=== PATIENT | female | born 1955 | race Caucasian/White ===

== ENCOUNTER 2018-07-16 12:29 | Observation (INO) ==
[2018-07-16] MEDS ORDERED: ALBUTEROL 2.5 MG/3 ML NEB RESP TX STA (13:17)
[2018-07-16 13:33] LABS: ABG Base Excess 1.5 MMOL/L (-2.5-2.5); ABG HCO3 25.7 MMOL/L (20-26); ABG Oxygen Saturation 96.6 % (95-100); ABG PCO2 42.7 MM HG (35-48); ABG PH 7.403 (7.35-7.45); ABG PO2 85.8 MM HG (80-95); ABG TCO2 22.8 MMOL/L (23-27)
[2018-07-16 13:54] LABS: Basophils % 0.5 % (0.0-0.8); Eosinophils % 0.5 % (0.00-10.9); Hematocrit 43.7 VOL% (35.7-47.0); Hemoglobin 14.2 GM/DL (12.0-16.0); Immature Granulocytes % 0.6 %; Immature Granulocytes Absolute 0.05 #; Lymphocytes # 1.3 10*3/uL (1.4-4.0); Lymphocytes % 15.6 % (21.3-54.2); Mean Corpuscular HGB Conc 32.5 GM/DL (32-36); Mean Corpuscular Hemoglobin 30 PG (27-34); Mean Corpuscular Volume 92.8 FL (87-102); Mean Platelet Volume 9.8 FL (9.6-12.0); Monocytes # 0.8 10*3/uL (0.11-0.8); Monocytes % 9.8 % (1.7-12.7); Neutrophils # 6.2 10*3/uL (1.4-7.4); Platelet Count 258 T/CUMM (130-400); Red Blood Count 4.71 MC/CUMM (3.8-5.5); Red Cell Distribution Width 13.2 % (9.3-17.3); White Blood Count 8.4 T/CUMM (4-12)
[2018-07-16 14:08] LABS: PT Patient Result 10.6 SECS; Partial Thromboplastin Time 26.7 SECS (0-40)
[2018-07-16 14:13] LABS: Albumin 3.4 G/DL (3.4-5.0); Bilirubin,Total 0.5 MG/DL (0.2-1.0); Calcium 8.9 MG/DL (8.5-10.1); Osmolality,Calculated 275.7 MOS/KG (273-304); Potassium 3.8 MMOL/L (3.5-5.1); Total Protein 7.5 G/DL (6.4-8.3)
[2018-07-16] MEDS ORDERED: ONDANSETRON 4 MG/2 ML VIAL IV PRN (16:26)
[2018-07-16] MEDS ORDERED: SODIUM CHLORIDE 0.9% 1,000 ML IV SCH (16:30)
[2018-07-16] MEDS ORDERED: BUDESONIDE/FORMOTEROL 160-4.5 INHALER 6 GM INH PRN (16:31)
[2018-07-16] MEDS ORDERED: NON-FORMULARY MEDICATION (Benazepril Hcl [Benazepril Hcl] 20 MG) PO SCH (17:00)
[2018-07-16] MEDS ORDERED: predniSONE 20 MG TABLET PO STA (17:12)
[2018-07-16] MEDS ORDERED: methylPREDNISolone SOD SUC 40 MG/1 ML VIAL IV STA (17:13)
[2018-07-16] MEDS: PANTOPRAZOLE 40 MG TABLET PO SCH (18:20)
[2018-07-16 20:25] LABS: Apearance,Urine CLEAR (Clear); Bilirubin,Urine Negative (Negative); Blood, Urine Moderate mg/dL (Negative); Glucose,Urine (UA) Negative (Negative); Ketones,Urine 80 mg/dL (Negative); Mucus,Urine Few /LPF (Occasional); Nitrite,Urine Negative (Negative); Protein,Urine Negative; RBC,Urine 6 /HPF (0-4); Squamous Epithelial Cell,Urine Occasional /HPF (0-10); Urine Color Yellow (Yellow); Urine Specific Gravity > 1.060 (1.001-1.035); Urine Urobilinogen < 2.0 EU/DL (0.2-1.0); WBC,Urine 1 /HPF (0-6)
[2018-07-17 05:50] LABS: Basophils % 0.1 % (0.0-0.8); Hematocrit 41.7 VOL% (35.7-47.0); Immature Granulocytes % 0.8 %; Immature Granulocytes Absolute 0.06 #; Lymphocytes # 0.8 10*3/uL (1.4-4.0); Lymphocytes % 10.2 % (21.3-54.2); Mean Corpuscular HGB Conc 33.6 GM/DL (32-36); Mean Corpuscular Hemoglobin 31 PG (27-34); Mean Corpuscular Volume 90.8 FL (87-102); Mean Platelet Volume 10.4 FL (9.6-12.0); Monocytes # 0.3 10*3/uL (0.11-0.8); Monocytes % 3.2 % (1.7-12.7); Neutrophils # 6.8 10*3/uL (1.4-7.4); Neutrophils % 85.7 % (38.7-73.9); Platelet Count 291 T/CUMM (130-400); Red Blood Count 4.59 MC/CUMM (3.8-5.5); Red Cell Distribution Width 13.3 % (9.3-17.3); White Blood Count 7.9 T/CUMM (4-12)
[2018-07-17 06:22] LABS: Albumin 3.2 G/DL (3.4-5.0); Bilirubin,Total 0.5 MG/DL (0.2-1.0); Calcium 9.1 MG/DL (8.5-10.1); Osmolality,Calculated 272.8 MOS/KG (273-304); Potassium 4.2 MMOL/L (3.5-5.1); Risk Ratio 3.89; Thyroid Stimulating Hormone 1.09 uIU/ml (0.358-3.74); Total Protein 7.6 G/DL (6.4-8.3); VLDL CHOLESTEROL 15.6 MG/DL
[2018-07-17 07:59] VITALS: BP 179/93
[2018-07-17] MEDS ORDERED: SPIRONOLACTONE 25 MG TABLET PO SCH (09:00)
[2018-07-17] MEDS ORDERED: FERROUS SULFATE 325 MG TABLET PO SCH (09:00)
[2018-07-17] MEDS ORDERED: CELECOXIB 200 MG CAPSULE PO SCH (09:00)
[2018-07-17] MEDS ORDERED: amLODIPine 5 MG TABLET PO SCH (09:00)
[2018-07-17] MEDS: PANTOPRAZOLE 40 MG TABLET PO SCH (09:15)
== END 2018-07-17 11:05 | disposition home or self-care (01) ==
LOC: EDUNIT# → EDBD → N.EDINP 12:29 → N.ED 12:29 → N.5E 19:35
PROVIDERS: ADMIT Internal Medicine; ATTEND Internal Medicine

== ENCOUNTER 2018-11-03 11:34 | Inpatient (IN) ==
[2018-11-03] MEDS ORDERED: ONDANSETRON 4 MG/2 ML VIAL IV STA (12:24)
[2018-11-03] MEDS ORDERED: SODIUM CHLORIDE 0.9% 500 ML IV STA (12:24)
[2018-11-03] MEDS ORDERED: FAMOTIDINE 20 MG/2 ML VIAL IV STA (12:28)
[2018-11-03 13:11] LABS: Basophils % 0.3 % (0.0-0.8); Eosinophils # 0.1 10*3/uL (0.0-0.87); Eosinophils % 0.6 % (0.00-10.9); Hematocrit 46.5 VOL% (35.7-47.0); Hemoglobin 15.1 GM/DL (12.0-16.0); Immature Granulocytes % 0.6 %; Immature Granulocytes Absolute 0.07 #; Lymphocytes # 1.9 10*3/uL (1.4-4.0); Lymphocytes % 17.7 % (21.3-54.2); Mean Corpuscular HGB Conc 32.5 GM/DL (32-36); Mean Corpuscular Volume 93.4 FL (87-102); Mean Platelet Volume 10.7 FL (9.6-12.0); Monocytes % 5.9 % (1.7-12.7); Neutrophils % 74.9 % (38.7-73.9); Platelet Count 126 T/CUMM (130-400); Red Blood Count 4.98 MC/CUMM (3.8-5.5); Red Cell Distribution Width 13.1 % (9.3-17.3); White Blood Count 10.8 T/CUMM (4-12)
[2018-11-03 13:35] LABS: Albumin 3.8 G/DL (3.4-5.0); Bilirubin,Total 0.6 MG/DL (0.2-1.0); Calcium 9.4 MG/DL (8.5-10.1); Osmolality,Calculated 276.4 MOS/KG (273-304); Total Protein 7.6 G/DL (6.4-8.3)
[2018-11-03 14:08] LABS: Lymphocytes 18 % (20-55); Segmented Neutrophils 76 % (50-85)
[2018-11-03 14:09] LABS: Hypochromasia Slight; Macrocytosis Slight; Platelet Estimate Adequate
[2018-11-03 14:10] LABS: Total Cells Counted 100
[2018-11-03 14:30] LABS: Apearance,Urine CLEAR (Clear); Bilirubin,Urine Negative (Negative); Blood, Urine Negative (Negative); Glucose,Urine (UA) Negative (Negative); Hyaline Casts,Urine 5 /LPF (0-3); Ketones,Urine 80 mg/dL (Negative); Mucus,Urine Many /LPF (Occasional); Nitrite,Urine Negative (Negative); Protein,Urine 100 MG/DL; Squamous Epithelial Cell,Urine Occasional /HPF (0-10); Urine Color Yellow (Yellow); Urine Specific Gravity 1.021 (1.001-1.035); Urine Urobilinogen < 2.0 EU/DL (0.2-1.0)
[2018-11-03] MEDS ORDERED: ONDANSETRON 4 MG/2 ML VIAL IV PRN (14:56)
[2018-11-03] MEDS ORDERED: BUDESONIDE/FORMOTEROL 160-4.5 INHALER 6 GM INH PRN (14:59)
[2018-11-03] MEDS: DEXTROSE 5% NACL 0.45% 1,000 ML IV SCH (21:13)
[2018-11-04 05:04] LABS: Basophils % 0.3 % (0.0-0.8); Eosinophils # 0.1 10*3/uL (0.0-0.87); Hematocrit 41.8 VOL% (35.7-47.0); Hemoglobin 13.6 GM/DL (12.0-16.0); Immature Granulocytes % 0.4 %; Immature Granulocytes Absolute 0.04 #; Lymphocytes % 19.3 % (21.3-54.2); Mean Corpuscular HGB Conc 32.5 GM/DL (32-36); Mean Corpuscular Volume 93.5 FL (87-102); Mean Platelet Volume 10.2 FL (9.6-12.0); Monocytes % 8.2 % (1.7-12.7); Neutrophils % 70.8 % (38.7-73.9); Platelet Count 270 T/CUMM (130-400); Red Blood Count 4.47 MC/CUMM (3.8-5.5); Red Cell Distribution Width 12.8 % (9.3-17.3); White Blood Count 10.6 T/CUMM (4-12)
[2018-11-04 05:27] LABS: Calcium 9.2 MG/DL (8.5-10.1); Osmolality,Calculated 280.1 MOS/KG (273-304); Risk Ratio 4.51; Thyroid Stimulating Hormone 2.25 uIU/ml (0.358-3.74); VLDL CHOLESTEROL 19.6 MG/DL
[2018-11-04] MEDS: DEXTROSE 5% NACL 0.45% 1,000 ML IV SCH ×2 (07:07→17:11)
[2018-11-04] MEDS ORDERED: LABETALOL 20 MG/4 ML SYRINGE IV ONE (07:39)
[2018-11-04] MEDS: FERROUS SULFATE 325 MG TABLET PO SCH (11:05)
[2018-11-04] MEDS: CELECOXIB 200 MG CAPSULE PO SCH (11:05)
[2018-11-04] MEDS: PANTOPRAZOLE 40 MG TABLET PO SCH (11:06)
[2018-11-04] MEDS: amLODIPine 5 MG TABLET PO SCH (11:06)
[2018-11-04] MEDS ORDERED: ENOXAPARIN 40 MG/0.4 ML SYRINGE SUBCUT SCH (22:00)
[2018-11-05] MEDS: DEXTROSE 5% NACL 0.45% 1,000 ML IV SCH ×2 (03:00→23:52)
[2018-11-05 05:52] LABS: Basophils % 0.3 % (0.0-0.8); Eosinophils # 0.1 10*3/uL (0.0-0.87); Eosinophils % 1.5 % (0.00-10.9); Immature Granulocytes % 0.3 %; Immature Granulocytes Absolute 0.03 #; Lymphocytes # 2.2 10*3/uL (1.4-4.0); Lymphocytes % 23.3 % (21.3-54.2); Mean Corpuscular HGB Conc 33.3 GM/DL (32-36); Mean Corpuscular Volume 93.3 FL (87-102); Mean Platelet Volume 10.6 FL (9.6-12.0); Monocytes % 8.7 % (1.7-12.7); Neutrophils % 65.9 % (38.7-73.9); Platelet Count 267 T/CUMM (130-400); Red Cell Distribution Width 12.8 % (9.3-17.3); White Blood Count 9.3 T/CUMM (4-12)
[2018-11-05 06:15] LABS: Calcium 9.1 MG/DL (8.5-10.1)
[2018-11-05] MEDS: POTASSIUM CHLORIDE RIDER 10 MEQ in PREMIX 1 EACH IV PRN ×5 (06:42→20:25)
[2018-11-05] MEDS ORDERED: hydrALAZINE 20 MG/1 ML VIAL IV PRN (07:23)
[2018-11-05] MEDS: amLODIPine 5 MG TABLET PO SCH (08:11)
[2018-11-05] MEDS: PANTOPRAZOLE 40 MG TABLET PO SCH (08:11)
[2018-11-05] MEDS: CELECOXIB 200 MG CAPSULE PO SCH (08:11)
[2018-11-05] MEDS: FERROUS SULFATE 325 MG TABLET PO SCH (08:11)
[2018-11-05] MEDS ORDERED: FUROSEMIDE 40 MG/4 ML VIAL IV ONE ×2 (09:56→17:00)
[2018-11-05] MEDS ORDERED: LABETALOL 20 MG/4 ML SYRINGE IV ONE (09:56)
[2018-11-05] MEDS: LABETALOL 20 MG/4 ML SYRINGE IV PRN ×2 (16:40→23:36)
[2018-11-05] MEDS ORDERED: LORazepam 2 MG/1 ML VIAL IV ONE (17:00)
[2018-11-05] MEDS: POTASSIUM CHLORIDE RIDER 10 MEQ in PREMIX 1 EACH IV SCH ×2 (19:18→19:19)
[2018-11-05] MEDS ORDERED: IMMUNE GLOBULIN 10% 20 GM, IMMUNE GLOBULIN 10% 10 GM, IMMUNE GLOBULIN 10% 5 GM in PREMI... IV SCH (21:00)
[2018-11-05 21:06] LABS: Folate 8.6 NG/ML (5.4-24.0); Vitamin B12 1653 PG/ML (211-911)
[2018-11-05] MEDS: methylPREDNISolone SOD SUC 40 MG/1 ML VIAL IV SCH (21:23)
[2018-11-05] MEDS ORDERED: IMMUNE GLOBULIN IV SCH (22:30)
[2018-11-05] MEDS ORDERED: [UNRECOGNIZED DRUG - OTHER] IV SCH (22:30)
[2018-11-06 04:51] LABS: Basophils % 0.1 % (0.0-0.8); Hematocrit 45.4 VOL% (35.7-47.0); Hemoglobin 15.1 GM/DL (12.0-16.0); Immature Granulocytes % 0.7 %; Immature Granulocytes Absolute 0.06 #; Lymphocytes # 0.6 10*3/uL (1.4-4.0); Lymphocytes % 6.8 % (21.3-54.2); Mean Corpuscular HGB Conc 33.3 GM/DL (32-36); Mean Corpuscular Volume 92.1 FL (87-102); Mean Platelet Volume 10.2 FL (9.6-12.0); Monocytes % 0.7 % (1.7-12.7); Neutrophils % 91.7 % (38.7-73.9); Platelet Count 349 T/CUMM (130-400); Red Blood Count 4.93 MC/CUMM (3.8-5.5); Red Cell Distribution Width 12.9 % (9.3-17.3); White Blood Count 8.8 T/CUMM (4-12)
[2018-11-06 04:56] LABS: PT Patient Result 10.7 SECS
[2018-11-06] MEDS: methylPREDNISolone SOD SUC 40 MG/1 ML VIAL IV SCH ×3 (05:01→22:07)
[2018-11-06] MEDS: LABETALOL 20 MG/4 ML SYRINGE IV PRN (05:05)
[2018-11-06 05:27] LABS: Calcium 9.8 MG/DL (8.5-10.1); Osmolality,Calculated 276.5 MOS/KG (273-304)
[2018-11-06] MEDS ORDERED: ceFAZolin 1,000 MG in SYRINGE 1 EACH IV ONE (06:30)
[2018-11-06] MEDS ORDERED: MAGNESIUM SULF RIDER 2 GM in PREMIX 1 EACH IV ONE (08:48)
[2018-11-06] MEDS ORDERED: PROPOFOL 200 MG/20 ML VIAL IV ONE (09:00)
[2018-11-06] MEDS ORDERED: LIDOCAINE 100 MG/5 ML SYRINGE ONE (09:00)
[2018-11-06 09:15] LABS: Hypochromasia 1+; Lymphocytes 8 % (20-55); Microcytosis Slight; Segmented Neutrophils 92 % (50-85); Total Cells Counted 100
[2018-11-06 09:16] LABS: Platelet Estimate Normal
[2018-11-06] MEDS ORDERED: LEVALBUTEROL 1.25 MG/3 ML NEB RESP TX STA ×2 (10:25→11:42)
[2018-11-06] MEDS: LACTATED RINGERS 1,000 ML IV SCH (10:54)
[2018-11-06] MEDS ORDERED: MIDAZOLAM 2 MG/2 ML VIAL ONE (11:11)
[2018-11-06] MEDS: CELECOXIB 200 MG CAPSULE PO SCH (12:46)
[2018-11-06] MEDS: DEXTROSE 5% NACL 0.45% 1,000 ML IV SCH (13:04)
[2018-11-06] MEDS ORDERED: DEXTROSE 50% 25 GM/50 ML VIAL IV PRN (14:02)
[2018-11-06] MEDS ORDERED: GLUCAGON 1 MG VIAL IM PRN (14:02)
[2018-11-06] MEDS ORDERED: LORazepam 2 MG/1 ML VIAL IV ONE (14:30)
[2018-11-06] MEDS: FERROUS SULFATE 325 MG TABLET PO SCH (15:46)
[2018-11-06] MEDS: PANTOPRAZOLE 40 MG TABLET PO SCH (15:46)
[2018-11-06] MEDS: amLODIPine 5 MG TABLET PO SCH (15:46)
[2018-11-06] MEDS: IMMUNE GLOBULIN IV SCH (21:40)
[2018-11-06] MEDS: PYRIDOSTIGMINE 60 MG TABLET PO SCH (21:40)
[2018-11-07 06:15] LABS: Calcium 9.1 MG/DL (8.5-10.1); Osmolality,Calculated 282.3 MOS/KG (273-304)
[2018-11-07 06:19] LABS: Prealbumin 12.1 MG/DL (20-40)
[2018-11-07] MEDS: amLODIPine 5 MG TABLET PO SCH (09:12)
[2018-11-07] MEDS: FERROUS SULFATE 325 MG TABLET PO SCH (09:12)
[2018-11-07] MEDS: PANTOPRAZOLE 40 MG TABLET PO SCH (09:13)
[2018-11-07] MEDS: PYRIDOSTIGMINE 60 MG TABLET PO SCH ×3 (09:13→21:24)
[2018-11-07] MEDS: INSULIN REGULAR 100 UNIT/ML SUBCUT SCH ×3 (09:14→18:57)
[2018-11-07] MEDS: methylPREDNISolone SOD SUC 40 MG/1 ML VIAL IV SCH ×3 (09:15→23:00)
[2018-11-07] MEDS ORDERED: LORazepam 2 MG/1 ML VIAL ONE (09:43)
[2018-11-07] MEDS ORDERED: LORazepam 2 MG/1 ML VIAL IV ONE (09:45)
[2018-11-07] MEDS: IMMUNE GLOBULIN IV SCH (21:49)
[2018-11-07] MEDS: hydrALAZINE 20 MG/1 ML VIAL IV PRN (22:14)
[2018-11-08] MEDS: LABETALOL 20 MG/4 ML SYRINGE IV PRN (00:13)
[2018-11-08] MEDS: LACTATED RINGERS 1,000 ML IV SCH (01:39)
[2018-11-08] MEDS: DEXTROSE 5% NACL 0.45% 1,000 ML IV SCH ×2 (01:39→23:23)
[2018-11-08] MEDS: INSULIN REGULAR 100 UNIT/ML SUBCUT SCH ×5 (01:39→23:56)
[2018-11-08] MEDS: methylPREDNISolone SOD SUC 40 MG/1 ML VIAL IV SCH ×3 (06:07→23:58)
[2018-11-08] MEDS: FUROSEMIDE 40 MG TABLET PO PRN (06:09)
[2018-11-08] MEDS: FERROUS SULFATE 325 MG TABLET PO SCH (09:44)
[2018-11-08] MEDS: PYRIDOSTIGMINE 60 MG TABLET PO SCH ×3 (09:44→21:47)
[2018-11-08] MEDS: amLODIPine 5 MG TABLET PO SCH (09:44)
[2018-11-08] MEDS: PANTOPRAZOLE 40 MG TABLET PO SCH (09:44)
[2018-11-08] MEDS: hydrALAZINE 20 MG/1 ML VIAL IV PRN (21:40)
[2018-11-08] MEDS: IMMUNE GLOBULIN IV SCH (21:42)
[2018-11-08] MEDS: POTASSIUM CHLORIDE 20 MEQ TABLET PO PRN (21:46)
[2018-11-09] MEDS: POTASSIUM CHLORIDE 20 MEQ TABLET PO PRN (00:03)
[2018-11-09] MEDS: methylPREDNISolone SOD SUC 40 MG/1 ML VIAL IV SCH ×2 (06:03→14:01)
[2018-11-09] MEDS: INSULIN REGULAR 100 UNIT/ML SUBCUT SCH ×3 (06:08→18:07)
[2018-11-09] MEDS: LACTATED RINGERS 1,000 ML IV SCH (07:44)
[2018-11-09] MEDS: PANTOPRAZOLE 40 MG TABLET PO SCH (08:51)
[2018-11-09] MEDS: FERROUS SULFATE 325 MG TABLET PO SCH (08:51)
[2018-11-09] MEDS: PYRIDOSTIGMINE 60 MG TABLET PO SCH ×3 (08:51→20:22)
[2018-11-09] MEDS: amLODIPine 5 MG TABLET PO SCH ×3 (08:51→20:22)
[2018-11-09] MEDS: hydrALAZINE 20 MG/1 ML VIAL IV PRN (12:39)
[2018-11-09] MEDS: FUROSEMIDE 40 MG TABLET PO PRN (16:39)
[2018-11-09] MEDS: IMMUNE GLOBULIN IV SCH (22:35)
[2018-11-10] MEDS: methylPREDNISolone SOD SUC 40 MG/1 ML VIAL IV SCH ×2 (00:01→06:42)
[2018-11-10] MEDS: DEXTROSE 5% NACL 0.45% 1,000 ML IV SCH (00:01)
[2018-11-10] MEDS: INSULIN REGULAR 100 UNIT/ML SUBCUT SCH ×4 (00:01→20:08)
[2018-11-10 05:14] LABS: Basophils % 0.3 % (0.0-0.8); Hematocrit 43.7 VOL% (35.7-47.0); Immature Granulocytes % 1.4 %; Immature Granulocytes Absolute 0.17 #; Lymphocytes # 0.6 10*3/uL (1.4-4.0); Lymphocytes % 4.6 % (21.3-54.2); Mean Corpuscular Volume 94.4 FL (87-102); Mean Platelet Volume 10.4 FL (9.6-12.0); Monocytes % 5.8 % (1.7-12.7); Neutrophils % 87.9 % (38.7-73.9); Platelet Count 345 T/CUMM (130-400); Red Blood Count 4.63 MC/CUMM (3.8-5.5); Red Cell Distribution Width 12.7 % (9.3-17.3)
[2018-11-10 05:37] LABS: Albumin 2.6 G/DL (3.4-5.0); Bilirubin,Total 0.7 MG/DL (0.2-1.0); Calcium 8.5 MG/DL (8.5-10.1); Osmolality,Calculated 277.4 MOS/KG (273-304)
[2018-11-10 05:43] LABS: Hypochromasia 1+; Lymphocytes 4 % (20-55); Platelet Estimate Adequate; Segmented Neutrophils 88 % (50-85); Total Cells Counted 100
[2018-11-10 05:44] LABS: Microcytosis Slight
[2018-11-10] MEDS: hydrALAZINE 20 MG/1 ML VIAL IV PRN (05:51)
[2018-11-10] MEDS: PYRIDOSTIGMINE 60 MG TABLET PO SCH ×3 (08:48→20:54)
[2018-11-10] MEDS: PANTOPRAZOLE 40 MG TABLET PO SCH (08:48)
[2018-11-10] MEDS: FERROUS SULFATE 325 MG TABLET PO SCH (08:48)
[2018-11-10] MEDS: FUROSEMIDE 40 MG TABLET PO PRN (08:48)
[2018-11-10] MEDS: amLODIPine 5 MG TABLET PO SCH ×2 (08:49→20:54)
[2018-11-10] MEDS ORDERED: FUROSEMIDE 40 MG/4 ML VIAL IV ONE (13:42)
[2018-11-10] MEDS: methylPREDNISolone SOD SUC 125 MG/2 ML VIAL IV SCH (20:08)
[2018-11-10] MEDS: POTASSIUM CHLORIDE 20 MEQ TABLET PO PRN (20:55)
[2018-11-11] MEDS: INSULIN REGULAR 100 UNIT/ML SUBCUT SCH ×4 (00:42→17:39)
[2018-11-11] MEDS: DEXTROSE 5% NACL 0.45% 1,000 ML IV SCH (00:42)
[2018-11-11] MEDS: methylPREDNISolone SOD SUC 125 MG/2 ML VIAL IV SCH (06:18)
[2018-11-11] MEDS: FERROUS SULFATE 325 MG TABLET PO SCH (09:28)
[2018-11-11] MEDS: amLODIPine 5 MG TABLET PO SCH ×2 (09:28→21:19)
[2018-11-11] MEDS: POTASSIUM CHLORIDE 20 MEQ TABLET PO PRN (09:28)
[2018-11-11] MEDS: PANTOPRAZOLE 40 MG TABLET PO SCH (09:29)
[2018-11-11] MEDS: PYRIDOSTIGMINE 60 MG TABLET PO SCH ×3 (09:29→21:19)
[2018-11-11] MEDS: WHEAT DEXTRIN POWDER 244 GM BOTTLE PEG SCH ×2 (14:52→21:20)
[2018-11-11] MEDS: hydrALAZINE 20 MG/1 ML VIAL IV PRN (18:17)
[2018-11-11] MEDS: predniSONE 10 MG TABLET PO SCH ×2 (18:19→21:21)
[2018-11-12] MEDS: INSULIN REGULAR 100 UNIT/ML SUBCUT SCH ×4 (00:14→18:17)
[2018-11-12] MEDS: DEXTROSE 5% NACL 0.45% 1,000 ML IV SCH (00:15)
[2018-11-12] MEDS: predniSONE 10 MG TABLET PO SCH (09:50)
[2018-11-12] MEDS: FERROUS SULFATE 325 MG TABLET PO SCH (09:58)
[2018-11-12] MEDS: PYRIDOSTIGMINE 60 MG TABLET PO SCH ×3 (09:58→21:26)
[2018-11-12] MEDS: PANTOPRAZOLE 40 MG TABLET PO SCH (09:58)
[2018-11-12] MEDS: WHEAT DEXTRIN POWDER 244 GM BOTTLE PEG SCH ×3 (09:58→22:11)
[2018-11-12] MEDS: amLODIPine 5 MG TABLET PO SCH ×2 (09:58→21:26)
[2018-11-12] MEDS ORDERED: POLYETHYLENE GLYCOL POWDER 17 GM PACK PEG PRN (10:28)
[2018-11-12 11:16] LABS: ACh Receptor (Muscle) Modulati 100 %; Striational (Striated Muscle) Negative titer (<1:120)
[2018-11-12] MEDS: predniSONE 20 MG TABLET PO SCH ×2 (11:53→21:26)
[2018-11-13] MEDS: INSULIN REGULAR 100 UNIT/ML SUBCUT SCH ×3 (00:18→13:00)
[2018-11-13] MEDS: DEXTROSE 5% NACL 0.45% 1,000 ML IV SCH (03:20)
[2018-11-13 05:54] LABS: Calcium 8.6 MG/DL (8.5-10.1); Osmolality,Calculated 281.2 MOS/KG (273-304); Prealbumin 21.9 MG/DL (20-40)
[2018-11-13] MEDS: amLODIPine 5 MG TABLET PO SCH (09:54)
[2018-11-13] MEDS: predniSONE 20 MG TABLET PO SCH (09:54)
[2018-11-13] MEDS: PYRIDOSTIGMINE 60 MG TABLET PO SCH (09:54)
[2018-11-13] MEDS: FERROUS SULFATE 325 MG TABLET PO SCH (09:54)
[2018-11-13] MEDS: WHEAT DEXTRIN POWDER 244 GM BOTTLE PEG SCH (09:55)
[2018-11-13] MEDS: PANTOPRAZOLE 40 MG TABLET PO SCH (09:58)
[2018-11-13 12:18] VITALS: BP 108/58
== END 2018-11-13 12:59 | disposition swing bed (61) | DRG 57 ==
LOC: N.ED 11:34 → SUATTDRO 14:56 → N.EDINP 14:56 → N.4E 15:45
PROVIDERS: ADMIT Internal Medicine Nephrology; ATTEND Internal Medicine Cardiovascular Disease
PROC: EGDWPEG (ICD-10-PCS; 2018-11-06 09:05)

== ENCOUNTER 2019-09-20 18:20 | Inpatient (IN) ==
[2019-09-20] MEDS ORDERED: hydrALAZINE 20 MG/1 ML VIAL IV STA (20:11)
[2019-09-20 20:14] LABS: Basophils # 0.1 10*3/uL (0.0-0.2); Basophils % 0.4 % (0.0-0.8); Eosinophils # 0.1 10*3/uL (0.0-0.87); Eosinophils % 0.4 % (0.00-10.9); Hematocrit 49.9 VOL% (35.7-47.0); Immature Granulocytes % 0.5 %; Immature Granulocytes Absolute 0.07 #; Lymphocytes # 3.8 10*3/uL (1.4-4.0); Lymphocytes % 26.6 % (21.3-54.2); Mean Corpuscular HGB Conc 32.1 GM/DL (32-36); Mean Corpuscular Volume 90.4 FL (87-102); Mean Platelet Volume 9.5 FL (9.6-12.0); Monocytes % 7.6 % (1.7-12.7); Neutrophils % 64.5 % (38.7-73.9); Platelet Count 320 T/CUMM (130-400); Red Blood Count 5.52 MC/CUMM (3.8-5.5); Red Cell Distribution Width 13.4 % (9.3-17.3); White Blood Count 14.2 T/CUMM (4-12)
[2019-09-20 20:41] LABS: Albumin 4.3 G/DL (3.4-5.0); Bilirubin,Total 0.7 MG/DL (0.2-1.0); Calcium 9.2 MG/DL (8.5-10.1); Osmolality,Calculated 279.5 MOS/KG (273-304); Total Protein 8.2 G/DL (6.4-8.3)
[2019-09-20] MEDS ORDERED: methylPREDNISolone SOD SUC 125 MG/2 ML VIAL IV STA (21:08)
[2019-09-20] MEDS ORDERED: ONDANSETRON 4 MG/2 ML VIAL IV PRN (22:00)
[2019-09-21] MEDS ORDERED: GLUCAGON 1 MG VIAL IM PRN (00:04)
[2019-09-21] MEDS ORDERED: DEXTROSE 50% 25 GM/50 ML VIAL IV PRN (00:04)
[2019-09-21] MEDS: DEXTROSE 5% NACL 0.45% 1,000 ML IV SCH ×2 (00:30→14:32)
[2019-09-21 05:53] LABS: Basophils % 0.1 % (0.0-0.8); Hemoglobin 15.4 GM/DL (12.0-16.0); Immature Granulocytes % 0.7 %; Immature Granulocytes Absolute 0.08 #; Lymphocytes # 0.5 10*3/uL (1.4-4.0); Lymphocytes % 4.5 % (21.3-54.2); Mean Corpuscular HGB Conc 32.1 GM/DL (32-36); Mean Corpuscular Volume 91.4 FL (87-102); Mean Platelet Volume 9.3 FL (9.6-12.0); Monocytes % 0.7 % (1.7-12.7); Platelet Count 338 T/CUMM (130-400); Red Blood Count 5.25 MC/CUMM (3.8-5.5); Red Cell Distribution Width 13.5 % (9.3-17.3); White Blood Count 11.2 T/CUMM (4-12)
[2019-09-21 06:17] LABS: Lymphocytes 4 % (20-55); Segmented Neutrophils 96 % (50-85); Total Cells Counted 100
[2019-09-21 06:18] LABS: Hypochromasia 1+; Microcytosis Slight; Platelet Estimate Adequate
[2019-09-21 06:21] LABS: Calcium 9.8 MG/DL (8.5-10.1); Osmolality,Calculated 278.8 MOS/KG (273-304)
[2019-09-21] MEDS: INSULIN REGULAR 100 UNIT/ML SUBCUT SCH ×4 (08:09→21:31)
[2019-09-21 08:14] LABS: Apearance,Urine Slightly Hazy (Clear); Bilirubin,Urine Negative (Negative); Blood, Urine Negative (Negative); Glucose,Urine (UA) Negative (Negative); Hyaline Casts,Urine 8 /LPF (0-3); Ketones,Urine 20 mg/dL (Negative); Mucus,Urine Many /LPF (Occasional); Nitrite,Urine Negative (Negative); Protein,Urine 100 MG/DL; RBC,Urine 1 /HPF (0-4); Squamous Epithelial Cell,Urine Occasional /HPF (0-10); Urine Color Amber (Yellow); Urine Specific Gravity 1.032 (1.001-1.035); Urine Urobilinogen < 2.0 EU/DL (0.2-1.0); WBC,Urine 2 /HPF (0-6)
[2019-09-21] MEDS ORDERED: FUROSEMIDE 20 MG/2 ML VIAL IV ONE (09:39)
[2019-09-21] MEDS: methylPREDNISolone SOD SUC 125 MG/2 ML VIAL IV SCH ×2 (09:49→21:30)
[2019-09-21] MEDS: PANTOPRAZOLE 40 MG VIAL IV SCH (09:51)
[2019-09-21 10:39] LABS: Calcium 9.5 MG/DL (8.5-10.1)
[2019-09-21] MEDS: ENOXAPARIN 40 MG/0.4 ML SYRINGE SUBCUT SCH (10:47)
[2019-09-21 10:54] LABS: Amorphous Crystals,Urine Few /HPF (Few); Apearance,Urine CLEAR (Clear); Bacteria,Urine Few /HPF (Few); Bilirubin,Urine Negative (Negative); Blood, Urine Negative (Negative); Glucose,Urine (UA) Negative (Negative); Ketones,Urine 20 mg/dL (Negative); Mucus,Urine Many /LPF (Occasional); Nitrite,Urine Negative (Negative); Protein,Urine 100 MG/DL; Squamous Epithelial Cell,Urine Occasional /HPF (0-10); Urine Color Yellow (Yellow); Urine Specific Gravity 1.012 (1.001-1.035); Urine Urobilinogen < 2.0 EU/DL (0.2-1.0); WBC,Urine 1 /HPF (0-6)
[2019-09-21 11:21] LABS: ABG HCO3 26.2 MMOL/L (20-26); ABG Oxygen Saturation 97.7 % (95-100); ABG PCO2 47.6 MM HG (35-48); ABG PH 7.378 (7.35-7.45); ABG TCO2 23.9 MMOL/L (23-27); Allen Test Positive
[2019-09-21] MEDS: hydrALAZINE 20 MG/1 ML VIAL IV PRN (12:30)
[2019-09-21] MEDS ORDERED: ACETYLCYSTEINE 20% 800 MG/4 ML VIAL RESP TX SCH (13:00)
[2019-09-21] MEDS ORDERED: IMMUNE GLOBULIN IV SCH (13:00)
[2019-09-21] MEDS ORDERED: [UNRECOGNIZED DRUG - OTHER] IV SCH (13:00)
[2019-09-21] MEDS ORDERED: METOPROLOL TARTRATE 5 MG/5 ML VIAL IV ONE (13:42)
[2019-09-21] MEDS: METOPROLOL TARTRATE 5 MG/5 ML VIAL IV PRN (15:52)
[2019-09-21] MEDS: FUROSEMIDE 40 MG/4 ML VIAL IV SCH (16:07)
[2019-09-21] MEDS: ARFORMOTEROL 15 MCG/2 ML NEB RESP TX SCH (19:30)
[2019-09-21] MEDS: DORNASE ALFA 2.5 MG/2.5 ML VIAL RESP TX SCH (19:38)
[2019-09-21] MEDS: PYRIDOSTIGMINE 60 MG TABLET PO SCH ×2 (21:30→21:37)
[2019-09-22] MEDS: hydrALAZINE 20 MG/1 ML VIAL IV PRN (04:17)
[2019-09-22] MEDS: METOPROLOL TARTRATE 5 MG/5 ML VIAL IV PRN (06:29)
[2019-09-22] MEDS: ARFORMOTEROL 15 MCG/2 ML NEB RESP TX SCH ×2 (08:06→19:46)
[2019-09-22] MEDS: DORNASE ALFA 2.5 MG/2.5 ML VIAL RESP TX SCH ×2 (08:09→19:46)
[2019-09-22] MEDS: ENOXAPARIN 40 MG/0.4 ML SYRINGE SUBCUT SCH (09:00)
[2019-09-22] MEDS ORDERED: FUROSEMIDE 20 MG/2 ML VIAL IV SCH (09:00)
[2019-09-22] MEDS: FUROSEMIDE 40 MG/4 ML VIAL IV SCH ×3 (09:00→21:44)
[2019-09-22] MEDS ORDERED: IMMUNE GLOBULIN 10% 40 GM in PREMIX 1 EACH IV ONE (09:00)
[2019-09-22] MEDS: PANTOPRAZOLE 40 MG VIAL IV SCH (09:02)
[2019-09-22] MEDS: methylPREDNISolone SOD SUC 125 MG/2 ML VIAL IV SCH ×2 (09:04→17:50)
[2019-09-22] MEDS: INSULIN REGULAR 100 UNIT/ML SUBCUT SCH ×4 (09:18→22:42)
[2019-09-22] MEDS: LACTOBACILLUS ACIDOPHILUS/BULGARICUS CHEW TABLET PO SCH (09:18)
[2019-09-22] MEDS: PYRIDOSTIGMINE 60 MG TABLET PO SCH ×3 (09:21→23:27)
[2019-09-22] MEDS: amLODIPine 5 MG TABLET PO SCH (09:21)
[2019-09-22] MEDS ORDERED: IMMUNE GLOBULIN 10% 20 GM, IMMUNE GLOBULIN 10% 20 GM in PREMIX 1 EACH IV ONE (09:30)
[2019-09-22] MEDS: niCARdipine INJ 25 MG in SODIUM CHLORIDE 0.9% 240 ML IV PRN ×2 (09:55→15:47)
[2019-09-22 10:10] LABS: Calcium 9.6 MG/DL (8.5-10.1); Osmolality,Calculated 284.7 MOS/KG (273-304)
[2019-09-22 10:48] LABS: Allen Test Positive; Pt O2 Delivery Device Other
[2019-09-22 10:50] LABS: ABG Base Excess 8.1 MMOL/L (-2.5-2.5); ABG HCO3 31.8 MMOL/L (20-26); ABG Oxygen Saturation 96.4 % (95-100); ABG PCO2 52.6 MM HG (35-48); ABG PH 7.426 (7.35-7.45); ABG PO2 85.6 MM HG (80-95); ABG TCO2 29.1 MMOL/L (23-27)
[2019-09-22] MEDS: DEXTROSE 5% NACL 0.45% 1,000 ML IV SCH (13:40)
[2019-09-22] MEDS ORDERED: PYRIDOSTIGMINE 60 MG TABLET PO SCH (17:00)
[2019-09-22] MEDS ORDERED: PYRIDOSTIGMINE 10 MG/2 ML IV SCH (22:00)
[2019-09-23] MEDS: niCARdipine INJ 25 MG in SODIUM CHLORIDE 0.9% 240 ML IV PRN ×2 (01:24→10:32)
[2019-09-23] MEDS: DEXTROSE 5% NACL 0.45% 1,000 ML IV SCH ×2 (01:58→15:33)
[2019-09-23 05:33] LABS: Basophils # 0.1 10*3/uL (0.0-0.2); Basophils % 0.6 % (0.0-0.8); Eosinophils # 0.2 10*3/uL (0.0-0.87); Hematocrit 32.2 VOL% (35.7-47.0); Hemoglobin 10.2 GM/DL (12.0-16.0); Immature Granulocytes % 0.5 %; Immature Granulocytes Absolute 0.04 #; Lymphocytes # 0.6 10*3/uL (1.4-4.0); Mean Corpuscular HGB Conc 31.7 GM/DL (32-36); Mean Corpuscular Volume 96.4 FL (87-102); Mean Platelet Volume 12.7 FL (9.6-12.0); Neutrophils % 79.9 % (38.7-73.9); Platelet Count 109 T/CUMM (130-400); Red Blood Count 3.34 MC/CUMM (3.8-5.5); White Blood Count 7.9 T/CUMM (4-12)
[2019-09-23 05:48] LABS: Calcium 8.5 MG/DL (8.5-10.1); Osmolality,Calculated 287.5 MOS/KG (273-304)
[2019-09-23] MEDS: methylPREDNISolone SOD SUC 125 MG/2 ML VIAL IV SCH ×2 (06:36→17:01)
[2019-09-23] MEDS: ARFORMOTEROL 15 MCG/2 ML NEB RESP TX SCH ×2 (07:35→19:29)
[2019-09-23] MEDS: DORNASE ALFA 2.5 MG/2.5 ML VIAL RESP TX SCH ×2 (07:43→19:29)
[2019-09-23] MEDS: INSULIN REGULAR 100 UNIT/ML SUBCUT SCH ×4 (07:50→20:40)
[2019-09-23] MEDS: ENOXAPARIN 40 MG/0.4 ML SYRINGE SUBCUT SCH (08:17)
[2019-09-23] MEDS: PANTOPRAZOLE 40 MG VIAL IV SCH (08:17)
[2019-09-23] MEDS: amLODIPine 5 MG TABLET PO SCH ×2 (08:18→20:40)
[2019-09-23] MEDS: PYRIDOSTIGMINE 60 MG TABLET PO SCH ×4 (08:18→20:40)
[2019-09-23] MEDS: FUROSEMIDE 40 MG/4 ML VIAL IV SCH ×2 (08:36→20:40)
[2019-09-23] MEDS ORDERED: IMMUNE GLOBULIN 10% 40 GM in PREMIX 1 EACH IV ONE (09:00)
[2019-09-23] MEDS: METOPROLOL TARTRATE 5 MG/5 ML VIAL IV PRN ×2 (09:45→17:02)
[2019-09-23] MEDS: hydrALAZINE 20 MG/1 ML VIAL IV PRN ×2 (09:49→17:02)
[2019-09-24 04:42] LABS: Basophils % 0.1 % (0.0-0.8); Hematocrit 50.1 VOL% (35.7-47.0); Hemoglobin 15.7 GM/DL (12.0-16.0); Immature Granulocytes % 1.2 %; Immature Granulocytes Absolute 0.12 #; Lymphocytes # 0.6 10*3/uL (1.4-4.0); Lymphocytes % 6.4 % (21.3-54.2); Mean Corpuscular HGB Conc 31.3 GM/DL (32-36); Mean Corpuscular Volume 91.9 FL (87-102); Mean Platelet Volume 9.1 FL (9.6-12.0); Monocytes % 5.8 % (1.7-12.7); Neutrophils % 86.5 % (38.7-73.9); Platelet Count 388 T/CUMM (130-400); Red Blood Count 5.45 MC/CUMM (3.8-5.5); Red Cell Distribution Width 13.6 % (9.3-17.3)
[2019-09-24 05:12] LABS: Calcium 9.2 MG/DL (8.5-10.1)
[2019-09-24] MEDS: methylPREDNISolone SOD SUC 125 MG/2 ML VIAL IV SCH ×2 (06:12→17:07)
[2019-09-24] MEDS: hydrALAZINE 20 MG/1 ML VIAL IV PRN (06:12)
[2019-09-24] MEDS: ARFORMOTEROL 15 MCG/2 ML NEB RESP TX SCH ×2 (07:25→20:28)
[2019-09-24] MEDS: DEXTROSE 5% NACL 0.45% 1,000 ML IV SCH (07:27)
[2019-09-24] MEDS: INSULIN REGULAR 100 UNIT/ML SUBCUT SCH ×5 (07:27→22:39)
[2019-09-24] MEDS: DORNASE ALFA 2.5 MG/2.5 ML VIAL RESP TX SCH ×2 (07:33→20:38)
[2019-09-24] MEDS: amLODIPine 5 MG TABLET PO SCH ×2 (08:10→21:18)
[2019-09-24] MEDS: PYRIDOSTIGMINE 60 MG TABLET PO SCH ×4 (08:10→21:18)
[2019-09-24] MEDS: ENOXAPARIN 40 MG/0.4 ML SYRINGE SUBCUT SCH (08:10)
[2019-09-24] MEDS: PANTOPRAZOLE 40 MG VIAL IV SCH (08:10)
[2019-09-24] MEDS: FUROSEMIDE 40 MG/4 ML VIAL IV SCH (08:46)
[2019-09-24] MEDS: FUROSEMIDE 40 MG TABLET PO SCH (17:06)
[2019-09-25] MEDS ORDERED: ACETAMINOPHEN 325 MG TABLET PO PRN (04:08)
[2019-09-25] MEDS: hydrALAZINE 20 MG/1 ML VIAL IV PRN (04:18)
[2019-09-25] MEDS: ARFORMOTEROL 15 MCG/2 ML NEB RESP TX SCH ×2 (07:09→19:37)
[2019-09-25] MEDS: DORNASE ALFA 2.5 MG/2.5 ML VIAL RESP TX SCH ×2 (07:09→19:37)
[2019-09-25 07:23] LABS: Osmolality,Calculated 290.8 MOS/KG (273-304)
[2019-09-25] MEDS: INSULIN REGULAR 100 UNIT/ML SUBCUT SCH ×3 (09:50→17:12)
[2019-09-25] MEDS: POTASSIUM CHLORIDE 20 MEQ/15 ML UDCUP PER TUBE PRN ×4 (09:51→18:34)
[2019-09-25] MEDS: predniSONE 20 MG TABLET PO SCH ×2 (09:51→22:12)
[2019-09-25] MEDS: amLODIPine 5 MG TABLET PO SCH ×2 (09:51→22:12)
[2019-09-25] MEDS: PANTOPRAZOLE 40 MG VIAL IV SCH (09:52)
[2019-09-25] MEDS: CALCIUM (CARBONATE)/VITAMIN D 600 MG-400 UNIT TABLET PO SCH (09:52)
[2019-09-25] MEDS: PYRIDOSTIGMINE 60 MG TABLET PO SCH ×4 (09:52→22:12)
[2019-09-25] MEDS: ENOXAPARIN 40 MG/0.4 ML SYRINGE SUBCUT SCH (09:52)
[2019-09-25] MEDS: FUROSEMIDE 40 MG TABLET PO SCH ×2 (09:52→17:13)
[2019-09-25] MEDS: CHOLECALCIFEROL 5,000 UNIT TABLET PO SCH (09:52)
[2019-09-25] MEDS: carvediloL 6.25 MG TABLET PO SCH ×2 (10:58→22:12)
[2019-09-25] MEDS: PANTOPRAZOLE 40 MG TABLET PO SCH (12:28)
[2019-09-25] MEDS: LACTOBACILLUS ACIDOPHILUS/BULGARICUS CHEW TABLET PO SCH (13:45)
[2019-09-25] MEDS: BIOTIN KERATIN PO SCH (13:54)
[2019-09-26 06:09] LABS: Basophils % 0.1 % (0.0-0.8); Hemoglobin 14.5 GM/DL (12.0-16.0); Immature Granulocytes % 1.1 %; Lymphocytes # 0.5 10*3/uL (1.4-4.0); Lymphocytes % 5.3 % (21.3-54.2); Mean Corpuscular HGB Conc 31.5 GM/DL (32-36); Mean Platelet Volume 9.4 FL (9.6-12.0); Monocytes % 8.2 % (1.7-12.7); Neutrophils % 85.3 % (38.7-73.9); Platelet Count 263 T/CUMM (130-400); Red Cell Distribution Width 13.4 % (9.3-17.3); White Blood Count 9.2 T/CUMM (4-12)
[2019-09-26 06:23] LABS: Calcium 8.9 MG/DL (8.5-10.1); Osmolality,Calculated 285.2 MOS/KG (273-304)
[2019-09-26] MEDS: ARFORMOTEROL 15 MCG/2 ML NEB RESP TX SCH ×2 (07:30→19:40)
[2019-09-26] MEDS: DORNASE ALFA 2.5 MG/2.5 ML VIAL RESP TX SCH ×2 (07:38→19:46)
[2019-09-26] MEDS: INSULIN REGULAR 100 UNIT/ML SUBCUT SCH ×4 (10:24→20:30)
[2019-09-26] MEDS: PANTOPRAZOLE 40 MG TABLET PO SCH (10:25)
[2019-09-26] MEDS: POTASSIUM CHLORIDE 20 MEQ TABLET PO PRN ×2 (10:25→13:14)
[2019-09-26] MEDS: carvediloL 6.25 MG TABLET PO SCH ×2 (10:25→20:27)
[2019-09-26] MEDS: amLODIPine 5 MG TABLET PO SCH ×2 (10:26→20:27)
[2019-09-26] MEDS: CALCIUM (CARBONATE)/VITAMIN D 600 MG-400 UNIT TABLET PO SCH (10:26)
[2019-09-26] MEDS: LACTOBACILLUS ACIDOPHILUS/BULGARICUS CHEW TABLET PO SCH (10:26)
[2019-09-26] MEDS: CHOLECALCIFEROL 5,000 UNIT TABLET PO SCH (10:27)
[2019-09-26] MEDS: FUROSEMIDE 40 MG TABLET PO SCH (10:27)
[2019-09-26] MEDS: predniSONE 20 MG TABLET PO SCH ×2 (10:27→20:27)
[2019-09-26] MEDS: ENOXAPARIN 40 MG/0.4 ML SYRINGE SUBCUT SCH (10:27)
[2019-09-26] MEDS: BIOTIN KERATIN PO SCH (10:28)
[2019-09-26] MEDS: PYRIDOSTIGMINE 60 MG TABLET PO SCH ×4 (10:30→20:27)
[2019-09-27 03:48] LABS: Basophils % 0.1 % (0.0-0.8); Hematocrit 42.8 VOL% (35.7-47.0); Hemoglobin 13.6 GM/DL (12.0-16.0); Immature Granulocytes % 1.1 %; Immature Granulocytes Absolute 0.12 #; Lymphocytes # 0.8 10*3/uL (1.4-4.0); Mean Corpuscular HGB Conc 31.8 GM/DL (32-36); Mean Corpuscular Volume 90.7 FL (87-102); Mean Platelet Volume 9.7 FL (9.6-12.0); Monocytes % 6.7 % (1.7-12.7); Neutrophils % 85.1 % (38.7-73.9); Platelet Count 235 T/CUMM (130-400); Red Blood Count 4.72 MC/CUMM (3.8-5.5); White Blood Count 10.8 T/CUMM (4-12)
[2019-09-27 04:01] LABS: Calcium 8.5 MG/DL (8.5-10.1); Osmolality,Calculated 281.4 MOS/KG (273-304)
[2019-09-27] MEDS: ARFORMOTEROL 15 MCG/2 ML NEB RESP TX SCH ×2 (07:31→19:36)
[2019-09-27] MEDS: DORNASE ALFA 2.5 MG/2.5 ML VIAL RESP TX SCH ×2 (07:31→19:36)
[2019-09-27] MEDS: INSULIN REGULAR 100 UNIT/ML SUBCUT SCH ×4 (08:23→20:51)
[2019-09-27] MEDS: BIOTIN KERATIN PO SCH (08:37)
[2019-09-27] MEDS: CALCIUM (CARBONATE)/VITAMIN D 600 MG-400 UNIT TABLET PO SCH (08:43)
[2019-09-27] MEDS: ENOXAPARIN 40 MG/0.4 ML SYRINGE SUBCUT SCH (08:43)
[2019-09-27] MEDS: CHOLECALCIFEROL 5,000 UNIT TABLET PO SCH (08:43)
[2019-09-27] MEDS: PANTOPRAZOLE 40 MG TABLET PO SCH (08:43)
[2019-09-27] MEDS: carvediloL 6.25 MG TABLET PO SCH ×2 (08:44→20:49)
[2019-09-27] MEDS: predniSONE 20 MG TABLET PO SCH ×2 (08:44→20:50)
[2019-09-27] MEDS: LACTOBACILLUS ACIDOPHILUS/BULGARICUS CHEW TABLET PO SCH (08:44)
[2019-09-27] MEDS: PYRIDOSTIGMINE 60 MG TABLET PO SCH ×4 (08:44→20:49)
[2019-09-27] MEDS: amLODIPine 5 MG TABLET PO SCH ×2 (08:44→20:50)
[2019-09-27] MEDS ORDERED: FUROSEMIDE 40 MG TABLET PO SCH (09:00)
[2019-09-28 07:14] LABS: Calcium 8.7 MG/DL (8.5-10.1); Osmolality,Calculated 281.1 MOS/KG (273-304)
[2019-09-28] MEDS: ARFORMOTEROL 15 MCG/2 ML NEB RESP TX SCH (08:10)
[2019-09-28] MEDS: DORNASE ALFA 2.5 MG/2.5 ML VIAL RESP TX SCH (08:16)
[2019-09-28] MEDS: INSULIN REGULAR 100 UNIT/ML SUBCUT SCH ×2 (09:10→12:14)
[2019-09-28] MEDS: ENOXAPARIN 40 MG/0.4 ML SYRINGE SUBCUT SCH (09:11)
[2019-09-28] MEDS: PANTOPRAZOLE 40 MG TABLET PO SCH (09:11)
[2019-09-28] MEDS: amLODIPine 5 MG TABLET PO SCH (09:12)
[2019-09-28] MEDS: carvediloL 6.25 MG TABLET PO SCH (09:12)
[2019-09-28] MEDS: CHOLECALCIFEROL 5,000 UNIT TABLET PO SCH (09:12)
[2019-09-28] MEDS: POTASSIUM CHLORIDE 20 MEQ TABLET PO PRN ×3 (09:12→13:12)
[2019-09-28] MEDS: PYRIDOSTIGMINE 60 MG TABLET PO SCH ×2 (09:13→13:12)
[2019-09-28] MEDS: predniSONE 20 MG TABLET PO SCH (09:13)
[2019-09-28] MEDS: CALCIUM (CARBONATE)/VITAMIN D 600 MG-400 UNIT TABLET PO SCH (09:16)
[2019-09-28] MEDS: LACTOBACILLUS ACIDOPHILUS/BULGARICUS CHEW TABLET PO SCH (11:01)
[2019-09-28 13:02] VITALS: BP 152/78
== END 2019-09-28 15:02 | DRG 56 ==
LOC: N.ED 18:20 → N.EDINP 22:37 → SUATTDRO 22:37 → N.EDINP 22:48 → N.3E 23:12 → N.ICU 09-21 10:04 → N.TELES 09-24 15:52
PROVIDERS: ADMIT Family Medicine; ATTEND Internal Medicine

== ENCOUNTER 2020-09-01 10:55 | Inpatient (IN) ==
[2020-09-01] MEDS ORDERED: methylPREDNISolone SOD SUC 125 MG/2 ML VIAL IV STA (11:39)
[2020-09-01] MEDS ORDERED: DEXTROSE 50% 25 GM/50 ML VIAL IV PRN (13:51)
[2020-09-01] MEDS ORDERED: GLUCAGON 1 MG VIAL IM PRN (13:51)
[2020-09-01] MEDS ORDERED: ONDANSETRON 4 MG/2 ML VIAL IV PRN (13:51)
[2020-09-01] MEDS ORDERED: methylPREDNISolone SOD SUC 125 MG/2 ML VIAL IV SCH ×2 (14:00→14:03)
[2020-09-01 14:17] LABS: Basophils % 0.2 % (0.0-0.8); Hematocrit 42.8 VOL% (35.7-47.0); Hemoglobin 14.4 GM/DL (12.0-16.0); Immature Granulocytes % 0.9 %; Immature Granulocytes Absolute 0.14 #; Lymphocytes # 0.8 10*3/uL (1.4-4.0); Lymphocytes % 5.6 % (21.3-54.2); Mean Corpuscular HGB Conc 33.6 GM/DL (32-36); Mean Corpuscular Volume 92.2 FL (87-102); Mean Platelet Volume 8.9 FL (9.6-12.0); Monocytes % 4.3 % (1.7-12.7); Platelet Count 260 T/CUMM (130-400); Red Blood Count 4.64 MC/CUMM (3.8-5.5); Red Cell Distribution Width 13.7 % (9.3-17.3); White Blood Count 14.9 T/CUMM (4-12)
[2020-09-01] MEDS: ENOXAPARIN 40 MG/0.4 ML SYRINGE SUBCUT SCH (14:27)
[2020-09-01 14:34] LABS: Albumin 3.4 G/DL (3.4-5.0); Bilirubin,Total 0.4 MG/DL (0.2-1.0); Calcium 8.9 MG/DL (8.5-10.1); Osmolality,Calculated 286.1 MOS/KG (273-304); Potassium 3.5 MMOL/L (3.5-5.1)
[2020-09-01] MEDS: methylPREDNISolone SOD SUC 125 MG/2 ML VIAL IV SCH (16:47)
[2020-09-01] MEDS: hydrALAZINE 20 MG/1 ML VIAL IV PRN (20:29)
[2020-09-01] MEDS: PYRIDOSTIGMINE 60 MG TABLET PO SCH (20:29)
[2020-09-01] MEDS ORDERED: LABETALOL 20 MG/4 ML SYRINGE IV ONE (23:03)
[2020-09-02] MEDS ORDERED: LABETALOL 20 MG/4 ML SYRINGE IV ONE (03:13)
[2020-09-02] MEDS: methylPREDNISolone SOD SUC 125 MG/2 ML VIAL IV SCH ×2 (04:07→16:35)
[2020-09-02 05:01] LABS: Basophils % 0.1 % (0.0-0.8); Hematocrit 43.6 VOL% (35.7-47.0); Hemoglobin 14.8 GM/DL (12.0-16.0); Immature Granulocytes % 1.5 %; Immature Granulocytes Absolute 0.14 #; Lymphocytes # 0.5 10*3/uL (1.4-4.0); Lymphocytes % 5.7 % (21.3-54.2); Mean Corpuscular HGB Conc 33.9 GM/DL (32-36); Monocytes % 1.4 % (1.7-12.7); Neutrophils % 91.3 % (38.7-73.9); Platelet Count 265 T/CUMM (130-400); Red Blood Count 4.69 MC/CUMM (3.8-5.5); Red Cell Distribution Width 13.8 % (9.3-17.3); White Blood Count 9.5 T/CUMM (4-12)
[2020-09-02 05:23] LABS: Band Neutrophils 1 % (0-10); Lymphocytes 3 % (20-55); Platelet Estimate Normal; Segmented Neutrophils 94 % (50-85); Total Cells Counted 100
[2020-09-02] MEDS ORDERED: cloNIDine 0.2 MG/24 HR PATCH TRANSDERM SCH (05:45)
[2020-09-02 05:46] LABS: Osmolality,Calculated 282.5 MOS/KG (273-304); Potassium 3.6 MMOL/L (3.5-5.1); Risk Ratio 3.78; VLDL CHOLESTEROL 35.4 MG/DL
[2020-09-02 05:55] LABS: Amorphous Crystals,Urine Few /HPF (Few); Bilirubin,Urine Negative (Negative); Blood, Urine Negative (Negative); Glucose,Urine (UA) 50 mg/dL (Negative); Ketones,Urine 20 mg/dL (Negative); Mucus,Urine Many /LPF (Occasional); Nitrite,Urine Negative (Negative); Protein,Urine 30 MG/DL; Urine Appearance CLOUDY (Clear); Urine Color Yellow (Yellow); Urine Specific Gravity 1.031 (1.001-1.035); Urine Urobilinogen < 2.0 EU/DL (0.2-1.0)
[2020-09-02] MEDS: hydrALAZINE 20 MG/1 ML VIAL IV PRN (07:26)
[2020-09-02] MEDS ORDERED: KETOROLAC 30 MG/1 ML VIAL IV ONE (08:46)
[2020-09-02] MEDS ORDERED: PANTOPRAZOLE 40 MG TABLET PO SCH ×2 (09:00)
[2020-09-02] MEDS: PANTOPRAZOLE 40 MG VIAL IV SCH (09:04)
[2020-09-02] MEDS: PYRIDOSTIGMINE 60 MG TABLET PO SCH ×3 (09:04→21:03)
[2020-09-02] MEDS: amLODIPine 5 MG TABLET PO SCH (09:07)
[2020-09-02] MEDS: ENOXAPARIN 40 MG/0.4 ML SYRINGE SUBCUT SCH (14:23)
[2020-09-02] MEDS ORDERED: ARFORMOTEROL 15 MCG/2 ML NEB RESP TX PRN (14:50)
[2020-09-03] MEDS: hydrALAZINE 20 MG/1 ML VIAL IV PRN ×3 (04:52→20:29)
[2020-09-03] MEDS: methylPREDNISolone SOD SUC 125 MG/2 ML VIAL IV SCH ×2 (04:53→13:21)
[2020-09-03] MEDS: KETOROLAC 15 MG/1 ML VIAL IV PRN ×2 (05:29→20:31)
[2020-09-03 05:36] LABS: Basophils % 0.1 % (0.0-0.8); Hematocrit 46.8 VOL% (35.7-47.0); Hemoglobin 15.2 GM/DL (12.0-16.0); Immature Granulocytes % 1.3 %; Immature Granulocytes Absolute 0.19 #; Lymphocytes # 1.1 10*3/uL (1.4-4.0); Lymphocytes % 7.1 % (21.3-54.2); Mean Corpuscular HGB Conc 32.5 GM/DL (32-36); Mean Corpuscular Volume 93.6 FL (87-102); Mean Platelet Volume 9.1 FL (9.6-12.0); Monocytes % 5.5 % (1.7-12.7); Platelet Count 321 T/CUMM (130-400); Red Cell Distribution Width 13.9 % (9.3-17.3)
[2020-09-03 06:04] LABS: Calcium 9.1 MG/DL (8.5-10.1); Osmolality,Calculated 291.1 MOS/KG (273-304); Potassium 3.6 MMOL/L (3.5-5.1)
[2020-09-03] MEDS: ACETAMINOPHEN 325 MG TABLET PO PRN ×3 (06:11→20:32)
[2020-09-03] MEDS: PANTOPRAZOLE 40 MG VIAL IV SCH (08:35)
[2020-09-03] MEDS: amLODIPine 5 MG TABLET PO SCH (08:35)
[2020-09-03] MEDS: LACTOBACILLUS ACIDOPHILUS/BULGARICUS CAPLET PO SCH (08:35)
[2020-09-03] MEDS: CALCIUM (CARBONATE)/VITAMIN D 600 MG-400 UNIT TABLET PO SCH (08:35)
[2020-09-03] MEDS: PYRIDOSTIGMINE 60 MG TABLET PO SCH ×3 (08:35→20:32)
[2020-09-03] MEDS: ENOXAPARIN 40 MG/0.4 ML SYRINGE SUBCUT SCH (15:13)
[2020-09-04] MEDS: methylPREDNISolone SOD SUC 125 MG/2 ML VIAL IV SCH ×2 (02:49→13:46)
[2020-09-04] MEDS: ACETAMINOPHEN 325 MG TABLET PO PRN (02:54)
[2020-09-04 05:44] LABS: Basophils % 0.1 % (0.0-0.8); Hematocrit 44.9 VOL% (35.7-47.0); Hemoglobin 14.1 GM/DL (12.0-16.0); Immature Granulocytes % 1.7 %; Immature Granulocytes Absolute 0.19 #; Lymphocytes # 0.9 10*3/uL (1.4-4.0); Lymphocytes % 8.2 % (21.3-54.2); Mean Corpuscular HGB Conc 31.4 GM/DL (32-36); Mean Corpuscular Volume 98.7 FL (87-102); Mean Platelet Volume 9.2 FL (9.6-12.0); Monocytes % 8.9 % (1.7-12.7); Neutrophils % 81.1 % (38.7-73.9); Platelet Count 268 T/CUMM (130-400); Red Blood Count 4.55 MC/CUMM (3.8-5.5); Red Cell Distribution Width 14.2 % (9.3-17.3); White Blood Count 11.3 T/CUMM (4-12)
[2020-09-04] MEDS: PYRIDOSTIGMINE 60 MG TABLET PO SCH (08:02)
[2020-09-04] MEDS: PANTOPRAZOLE 40 MG VIAL IV SCH (08:03)
[2020-09-04] MEDS: CALCIUM (CARBONATE)/VITAMIN D 600 MG-400 UNIT TABLET PO SCH (08:03)
[2020-09-04] MEDS: amLODIPine 5 MG TABLET PO SCH (08:03)
[2020-09-04] MEDS: LACTOBACILLUS ACIDOPHILUS/BULGARICUS CAPLET PO SCH (08:03)
[2020-09-04] MEDS ORDERED: carvediloL 6.25 MG TABLET PO SCH (09:30)
[2020-09-04] MEDS ORDERED: amLODIPine 5 MG TABLET PO SCH (09:30)
[2020-09-04 11:36] VITALS: BP 153/84
[2020-09-04] MEDS: ENOXAPARIN 40 MG/0.4 ML SYRINGE SUBCUT SCH (14:52)
== END 2020-09-04 14:59 | disposition home or self-care (01) | DRG 57 ==
LOC: N.ED 10:55 → N.EDINP 13:51 → SUATTDRO 13:51 → N.CC 14:49 → N.4E 09-02 14:48
PROVIDERS: ADMIT Internal Medicine; ATTEND Internal Medicine

== ENCOUNTER 2021-06-04 10:56 | Inpatient (IN) ==
[2021-06-04] MEDS ORDERED: methylPREDNISolone SOD SUC 125 MG/2 ML VIAL IV STA (11:47)
[2021-06-04 12:31] LABS: Basophils % 0.2 % (0.0-0.8); Hematocrit 41.5 VOL% (35.7-47.0); Hemoglobin 13.3 GM/DL (12.0-16.0); Immature Granulocytes % 1.2 %; Immature Granulocytes Absolute 0.22 #; Lymphocytes # 0.8 10*3/uL (1.4-4.0); Lymphocytes % 4.2 % (21.3-54.2); Mean Corpuscular Volume 95.4 FL (87-102); Mean Platelet Volume 9.1 FL (9.6-12.0); Monocytes % 6.3 % (1.7-12.7); Neutrophils % 88.1 % (38.7-73.9); Platelet Count 278 T/CUMM (130-400); Red Blood Count 4.35 MC/CUMM (3.8-5.5); Red Cell Distribution Width 13.2 % (9.3-17.3)
[2021-06-04 12:37] LABS: Calcium 9.3 MG/DL (8.5-10.1); Osmolality,Calculated 279.7 MOS/KG (273-304); Potassium 4.4 MMOL/L (3.5-5.1)
[2021-06-04 12:58] LABS: Lymphocytes 4 % (20-55); Segmented Neutrophils 90 % (50-85); Total Cells Counted 100
[2021-06-04 12:59] LABS: Hypochromia Slight; Microcytosis Slight
[2021-06-04] MEDS ORDERED: ONDANSETRON 4 MG/2 ML VIAL IV PRN (13:25)
[2021-06-04] MEDS ORDERED: GLUCAGON 1 MG VIAL IM PRN (13:25)
[2021-06-04 13:26] LABS: Bilirubin,Urine Negative (Negative); Blood, Urine Negative (Negative); Glucose,Urine (UA) Negative (Negative); Ketones,Urine 5 mg/dL (Negative); Mucus,Urine Occasional /LPF (Occasional); Nitrite,Urine Negative (Negative); Protein,Urine Negative; RBC,Urine 2 /HPF (0-4); Squamous Epithelial Cell,Urine Occasional /HPF (0-10); Urine Appearance CLEAR (Clear); Urine Color Straw (Yellow); Urine Specific Gravity 1.008 (1.001-1.035); Urine Urobilinogen < 2.0 EU/DL (<2.0)
[2021-06-04] MEDS ORDERED: ARFORMOTEROL 15 MCG/2 ML NEB RESP TX PRN (13:28)
[2021-06-04] MEDS ORDERED: BUDESONIDE/FORMOTEROL 160-4.5 INHALER 6 GM INH PRN (13:28)
[2021-06-04] MEDS ORDERED: hydrALAZINE 20 MG/1 ML VIAL IV PRN (13:29)
[2021-06-04] MEDS ORDERED: cloNIDine 0.1 MG TABLET PO PRN (13:29)
[2021-06-04] MEDS ORDERED: DEXTROSE 10% 25 GM/250 ML BAG IV PRN (14:01)
[2021-06-04] MEDS: SODIUM CHLORIDE 0.9% 1,000 ML IV SCH (14:05)
[2021-06-04] MEDS: ACETAMINOPHEN 325 MG TABLET PO PRN (17:25)
[2021-06-04] MEDS: PYRIDOSTIGMINE 60 MG TABLET PO SCH ×2 (17:27→22:00)
[2021-06-04] MEDS: INSULIN LISPRO 100 UNIT/ML SUBCUT SCH ×2 (17:30→22:06)
[2021-06-04] MEDS: carvediloL 6.25 MG TABLET PO SCH (22:00)
[2021-06-04] MEDS: ENOXAPARIN 40 MG/0.4 ML SYRINGE SUBCUT SCH (22:05)
[2021-06-05] MEDS: methylPREDNISolone SOD SUC 125 MG/2 ML VIAL IV SCH ×3 (01:40→23:10)
[2021-06-05] MEDS: SODIUM CHLORIDE 0.9% 1,000 ML IV SCH (04:45)
[2021-06-05 05:13] LABS: Basophils % 0.1 % (0.0-0.8); Hematocrit 40.5 VOL% (35.7-47.0); Hemoglobin 13.1 GM/DL (12.0-16.0); Immature Granulocytes % 1.5 %; Immature Granulocytes Absolute 0.17 #; Lymphocytes # 0.5 10*3/uL (1.4-4.0); Lymphocytes % 4.6 % (21.3-54.2); Mean Corpuscular HGB Conc 32.3 GM/DL (32-36); Mean Corpuscular Volume 95.5 FL (87-102); Mean Platelet Volume 9.3 FL (9.6-12.0); Monocytes % 1.6 % (1.7-12.7); Neutrophils % 92.2 % (38.7-73.9); Platelet Count 296 T/CUMM (130-400); Red Blood Count 4.24 MC/CUMM (3.8-5.5); Red Cell Distribution Width 13.1 % (9.3-17.3)
[2021-06-05 05:35] LABS: Lymphocytes 5 % (20-55); Platelet Estimate Adequate; Segmented Neutrophils 94 % (50-85); Total Cells Counted 100
[2021-06-05 05:51] LABS: Alanine Aminotransferase 34 U/L (13-56); Albumin 3.2 G/DL (3.4-5.0); Alkaline Phosphatase 53 U/L (45-117); Aspartate Amino Transferase 16 U/L (0-37); Bilirubin,Total < 0.39 MG/DL (0.20-1.00); Blood Urea Nitrogen 25 MG/DL (7-18); Calcium 8.8 MG/DL (8.5-10.1); Carbon Dioxide 26 MMOL/L (21-32); Estimated Glom Filtration Rate 100 ML/MIN; Glucose 156 MG/DL (74-106); Osmolality,Calculated 285.4 MOS/KG (273-304); Potassium 4.1 MMOL/L (3.5-5.1); Sodium 140 MMOL/L (136-145); Total Protein 8.1 G/DL (6.4-8.2)
[2021-06-05] MEDS: ACETAMINOPHEN 325 MG TABLET PO PRN ×3 (08:20→23:14)
[2021-06-05] MEDS: CALCIUM (CARBONATE)/VITAMIN D 600 MG-400 UNIT TABLET PO SCH (09:16)
[2021-06-05] MEDS: carvediloL 6.25 MG TABLET PO SCH ×2 (09:16→23:10)
[2021-06-05] MEDS: amLODIPine 5 MG TABLET PO SCH (09:17)
[2021-06-05] MEDS: CHOLECALCIFEROL 5,000 UNIT TABLET PO SCH (09:17)
[2021-06-05] MEDS: PANTOPRAZOLE 40 MG TABLET PO SCH (09:17)
[2021-06-05] MEDS: PYRIDOSTIGMINE 60 MG TABLET PO SCH ×4 (09:18→23:10)
[2021-06-05] MEDS: INSULIN LISPRO 100 UNIT/ML SUBCUT SCH ×4 (11:24→23:06)
[2021-06-05] MEDS: LACTATED RINGERS 1,000 ML IV SCH ×2 (12:16→23:11)
[2021-06-05] MEDS: ENOXAPARIN 40 MG/0.4 ML SYRINGE SUBCUT SCH (13:23)
[2021-06-06 05:31] LABS: Basophils % 0.2 % (0.0-0.8); Hematocrit 38.3 VOL% (35.7-47.0); Hemoglobin 12.3 GM/DL (12.0-16.0); Immature Granulocytes % 1.1 %; Immature Granulocytes Absolute 0.13 #; Lymphocytes # 0.7 10*3/uL (1.4-4.0); Lymphocytes % 5.6 % (21.3-54.2); Mean Corpuscular HGB Conc 32.1 GM/DL (32-36); Mean Corpuscular Volume 95.8 FL (87-102); Mean Platelet Volume 9.4 FL (9.6-12.0); Neutrophils % 90.1 % (38.7-73.9); Platelet Count 269 T/CUMM (130-400); White Blood Count 12.1 T/CUMM (4-12)
[2021-06-06 05:47] LABS: Calcium 8.7 MG/DL (8.5-10.1); Potassium 4.8 MMOL/L (3.5-5.1)
[2021-06-06] MEDS: INSULIN LISPRO 100 UNIT/ML SUBCUT SCH ×4 (07:52→21:12)
[2021-06-06] MEDS: PANTOPRAZOLE 40 MG TABLET PO SCH (09:20)
[2021-06-06] MEDS: CALCIUM (CARBONATE)/VITAMIN D 600 MG-400 UNIT TABLET PO SCH (09:20)
[2021-06-06] MEDS: carvediloL 6.25 MG TABLET PO SCH ×2 (09:20→21:04)
[2021-06-06] MEDS: PYRIDOSTIGMINE 60 MG TABLET PO SCH ×4 (09:20→21:04)
[2021-06-06] MEDS: CHOLECALCIFEROL 5,000 UNIT TABLET PO SCH (09:20)
[2021-06-06] MEDS: amLODIPine 5 MG TABLET PO SCH (09:20)
[2021-06-06] MEDS: ACETAMINOPHEN 325 MG TABLET PO PRN (10:53)
[2021-06-06] MEDS: predniSONE 5 MG TABLET PO SCH ×2 (10:53→21:04)
[2021-06-06] MEDS: LACTATED RINGERS 1,000 ML IV SCH ×2 (15:58→17:11)
[2021-06-06] MEDS ORDERED: CYANOCOBALAMIN 1000 MCG/1 ML VIAL IM ONE (17:02)
[2021-06-06] MEDS: ENOXAPARIN 40 MG/0.4 ML SYRINGE SUBCUT SCH (21:04)
[2021-06-07] MEDS: LACTATED RINGERS 1,000 ML IV SCH (02:39)
[2021-06-07 07:54] VITALS: BP 158/77
[2021-06-07] MEDS: INSULIN LISPRO 100 UNIT/ML SUBCUT SCH (08:11)
[2021-06-07] MEDS ORDERED: amLODIPine 10 MG TABLET PO SCH (09:00)
[2021-06-07] MEDS: CALCIUM (CARBONATE)/VITAMIN D 600 MG-400 UNIT TABLET PO SCH (09:12)
[2021-06-07] MEDS: PANTOPRAZOLE 40 MG TABLET PO SCH (09:13)
[2021-06-07] MEDS: CHOLECALCIFEROL 5,000 UNIT TABLET PO SCH (09:13)
[2021-06-07] MEDS: carvediloL 6.25 MG TABLET PO SCH (09:13)
[2021-06-07] MEDS: predniSONE 5 MG TABLET PO SCH (09:13)
[2021-06-07] MEDS: PYRIDOSTIGMINE 60 MG TABLET PO SCH (09:13)
== END 2021-06-07 10:44 | disposition home or self-care (01) | DRG 57 ==
LOC: N.ED 10:56 → N.EDINP 13:25 → SUATTDRO 13:25 → N.5E 06-05 20:01
PROVIDERS: ADMIT Internal Medicine; ATTEND Internal Medicine

== ENCOUNTER 2021-12-25 15:28 | Inpatient (IN) ==
[2021-12-25] MEDS ORDERED: methylPREDNISolone SOD SUC 125 MG/2 ML VIAL IV STA (19:52)
[2021-12-25 20:04] LABS: Bilirubin,Urine Negative (Negative); Blood, Urine Negative (Negative); Glucose,Urine (UA) Negative (Negative); Ketones,Urine Negative (Negative); Mucus,Urine Occasional /LPF (Occasional); Nitrite,Urine Positive (Negative); Protein,Urine Negative (Negative); RBC,Urine 1 /HPF (0-4); Squamous Epithelial Cell,Urine Occasional /HPF (0-10); Urine Appearance Clear (Clear); Urine Color Yellow (Yellow); Urine Specific Gravity 1.015 (1.001-1.035); Urine Urobilinogen 0.2 eU/dL (<2.0)
[2021-12-25 20:27] LABS: Basophils % 0.3 % (0.0-0.8); Hematocrit 38.6 VOL% (35.7-47.0); Immature Granulocytes % 1.6 %; Immature Granulocytes Absolute 0.17 #; Lymphocytes # 0.9 10*3/uL (1.4-4.0); Lymphocytes % 8.6 % (21.3-54.2); Mean Corpuscular HGB Conc 31.1 GM/DL (32-36); Mean Corpuscular Volume 90.2 FL (87-102); Mean Platelet Volume 9.2 FL (9.6-12.0); Monocytes # 0.5 10*3/uL (0.11-0.8); Monocytes % 4.8 % (1.7-12.7); Neutrophils % 84.7 % (38.7-73.9); Platelet Count 250 T/CUMM (130-400); Red Blood Count 4.28 MC/CUMM (3.8-5.5); Red Cell Distribution Width 15.4 % (9.3-17.3); White Blood Count 10.9 T/CUMM (4-12)
[2021-12-25 20:50] LABS: Alanine Aminotransferase 25 U/L (13-56); Alkaline Phosphatase 51 U/L (45-117); Aspartate Amino Transferase 15 U/L (0-37); Bilirubin,Total < 0.39 MG/DL (0.20-1.00); Blood Urea Nitrogen 20 MG/DL (7-18); Carbon Dioxide 27 MMOL/L (21-32); Chloride 109 MMOL/L (98-107); Glucose 129 MG/DL (74-106); Osmolality,Calculated 283.4 MOS/KG (273-304); Potassium 4.1 MMOL/L (3.5-5.1); Sodium 140 MMOL/L (136-145); Total Protein 8.1 G/DL (6.4-8.2)
[2021-12-26] MEDS ORDERED: ONDANSETRON 4 MG/2 ML VIAL IV PRN (00:02)
[2021-12-26] MEDS ORDERED: FUROSEMIDE 40 MG TABLET PO PRN (00:10)
[2021-12-26] MEDS ORDERED: ALBUTEROL 2.5 MG/3 ML NEB RESP TX PRN (00:20)
[2021-12-26] MEDS ORDERED: hydrALAZINE 20 MG/1 ML VIAL IV PRN (00:22)
[2021-12-26] MEDS ORDERED: cefTRIAXone 1,000 MG in SODIUM CHLORIDE 0.9% 100 ML IV SCH (00:30)
[2021-12-26 07:14] LABS: Alanine Aminotransferase 21 U/L (13-56); Albumin 2.8 G/DL (3.4-5.0); Alkaline Phosphatase 48 U/L (45-117); Aspartate Amino Transferase 13 U/L (0-37); Bilirubin,Total < 0.39 MG/DL (0.20-1.00); Blood Urea Nitrogen 18 MG/DL (7-18); Calcium 9.2 MG/DL (8.5-10.1); Carbon Dioxide 26 MMOL/L (21-32); Chloride 109 MMOL/L (98-107); Glucose 147 MG/DL (74-106); Osmolality,Calculated 285.3 MOS/KG (273-304); Potassium 4.1 MMOL/L (3.5-5.1); Sodium 141 MMOL/L (136-145); Total Protein 7.7 G/DL (6.4-8.2)
[2021-12-26] MEDS: ACETAMINOPHEN 325 MG TABLET PO PRN ×2 (08:50→21:22)
[2021-12-26] MEDS: PYRIDOSTIGMINE 60 MG TABLET PO SCH ×4 (08:55→21:22)
[2021-12-26] MEDS: POTASSIUM CHLORIDE 20 MEQ TABLET PO SCH (08:55)
[2021-12-26] MEDS: CALCIUM (CARBONATE)/VITAMIN D 600 MG-400 UNIT TABLET PO SCH (08:55)
[2021-12-26] MEDS: carvediloL 6.25 MG TABLET PO SCH ×2 (08:56→16:49)
[2021-12-26] MEDS: ZINC GLUCONATE 50 MG TABLET PO SCH (08:56)
[2021-12-26] MEDS: PANTOPRAZOLE 40 MG TABLET PO SCH (08:56)
[2021-12-26] MEDS: CHOLECALCIFEROL 5,000 UNIT TABLET PO SCH (08:56)
[2021-12-26] MEDS: CELECOXIB 200 MG CAPSULE PO SCH (08:56)
[2021-12-26] MEDS: ASCORBIC ACID 500 MG TABLET PO SCH (08:56)
[2021-12-26] MEDS: BIOTIN KERATIN PO SCH (08:59)
[2021-12-26] MEDS: ENOXAPARIN 40 MG/0.4 ML SYRINGE SUBCUT SCH (08:59)
[2021-12-26] MEDS: [UNRECOGNIZED DRUG - OTHER] PO SCH (08:59)
[2021-12-26] MEDS ORDERED: amLODIPine 5 MG TABLET PO SCH (09:00)
[2021-12-26] MEDS: methylPREDNISolone SOD SUC 125 MG/2 ML VIAL IV SCH ×2 (09:02→21:22)
[2021-12-26] MEDS: PHENAZOPYRIDINE 95 MG TABLET PO SCH ×2 (09:50→21:22)
[2021-12-26] MEDS: BACILLUS COAGULANS CAPLET PO SCH (09:50)
[2021-12-26] MEDS: amLODIPine 10 MG TABLET PO SCH (09:50)
[2021-12-27] MEDS: CELECOXIB 200 MG CAPSULE PO SCH (08:53)
[2021-12-27] MEDS: carvediloL 6.25 MG TABLET PO SCH (08:53)
[2021-12-27] MEDS: ZINC GLUCONATE 50 MG TABLET PO SCH (08:53)
[2021-12-27] MEDS: CALCIUM (CARBONATE)/VITAMIN D 600 MG-400 UNIT TABLET PO SCH (08:53)
[2021-12-27] MEDS: BACILLUS COAGULANS CAPLET PO SCH (08:53)
[2021-12-27] MEDS: ASCORBIC ACID 500 MG TABLET PO SCH (08:53)
[2021-12-27] MEDS: PHENAZOPYRIDINE 95 MG TABLET PO SCH (08:53)
[2021-12-27] MEDS: CHOLECALCIFEROL 5,000 UNIT TABLET PO SCH (08:53)
[2021-12-27] MEDS: ENOXAPARIN 40 MG/0.4 ML SYRINGE SUBCUT SCH (08:54)
[2021-12-27] MEDS: [UNRECOGNIZED DRUG - OTHER] PO SCH (08:54)
[2021-12-27] MEDS: PANTOPRAZOLE 40 MG TABLET PO SCH (08:54)
[2021-12-27] MEDS: amLODIPine 10 MG TABLET PO SCH (08:54)
[2021-12-27] MEDS: BIOTIN KERATIN PO SCH (08:54)
[2021-12-27] MEDS: PYRIDOSTIGMINE 60 MG TABLET PO SCH ×2 (08:54→12:00)
[2021-12-27] MEDS: POTASSIUM CHLORIDE 20 MEQ TABLET PO SCH (08:54)
[2021-12-27] MEDS: methylPREDNISolone SOD SUC 125 MG/2 ML VIAL IV SCH (08:57)
[2021-12-27] MEDS ORDERED: cefTRIAXone 1,000 MG in SODIUM CHLORIDE 0.9% 100 ML IV SCH (11:00)
[2021-12-27 11:03] VITALS: BP 155/73
[2021-12-27] MEDS ORDERED: carvediloL 12.5 MG TABLET PO SCH (17:00)
== END 2021-12-27 14:04 | disposition home or self-care (01) | DRG 57 ==
LOC: N.ED 15:28 → N.EDINP 15:28 → SUATTDRO 12-26 00:02 → N.EDINP 12-26 01:56 → N.3E 12-26 02:41 → UNDODISOB 12-27 14:04
PROVIDERS: ADMIT Internal Medicine; ATTEND Internal Medicine

== ENCOUNTER 2022-04-28 11:13 | Inpatient (IN) ==
[2022-04-28 12:06] LABS: Arterial Base Excess iSTAT 7 MMOL/L (-2.5-2.5); Arterial Bicarbonate iSTAT 35.2 MMOL/L (20-26); Arterial O2 Saturation iSTAT 99 % (95-100); Arterial PCO2 iSTAT 66 MM HG (35-48); Arterial PO2 iSTAT 173 MM HG (80-95); Arterial Total CO2 iSTAT 37 MMO/L (23-27); Arterial pH iSTAT 7.335 (7.35-7.45)
[2022-04-28 12:13] LABS: Basophils % 0.2 % (0.0-0.8); Eosinophils % 0.2 % (0.00-10.9); Hematocrit 39.4 VOL% (35.7-47.0); Hemoglobin 12.4 GM/DL (12.0-16.0); Immature Granulocytes % 2.4 %; Immature Granulocytes Absolute 0.39 #; Lymphocytes # 0.8 10*3/uL (1.4-4.0); Mean Corpuscular HGB Conc 31.5 GM/DL (32-36); Mean Corpuscular Volume 84.9 FL (87-102); Mean Platelet Volume 9.3 FL (9.6-12.0); Monocytes # 1.1 10*3/uL (0.11-0.8); Monocytes % 6.5 % (1.7-12.7); Neutrophils % 85.7 % (38.7-73.9); Platelet Count 275 T/CUMM (130-400); Red Blood Count 4.64 MC/CUMM (3.8-5.5); Red Cell Distribution Width 14.1 % (9.3-17.3); White Blood Count 16.6 T/CUMM (4-12)
[2022-04-28 12:30] LABS: Albumin 3.4 G/DL (3.4-5.0); Bilirubin,Total 0.5 MG/DL (0.20-1.00); Calcium 8.5 MG/DL (8.5-10.1); Osmolality,Calculated 267.8 MOS/KG (273-304); Potassium 3.7 MMOL/L (3.5-5.1); Total Protein 8.3 G/DL (6.4-8.2)
[2022-04-28] MEDS ORDERED: hydrALAZINE 20 MG/1 ML VIAL IV STA (13:08)
[2022-04-28] MEDS ORDERED: SIMETHICONE CHEW 125 MG TABLET PO PRN (13:38)
[2022-04-28] MEDS ORDERED: ONDANSETRON 4 MG/2 ML VIAL IV PRN (13:38)
[2022-04-28] MEDS ORDERED: SODIUM CHLORIDE 0.9% 1,000 ML IV SCH (14:00)
[2022-04-28] MEDS: ENOXAPARIN 40 MG/0.4 ML SYRINGE SUBCUT SCH (14:59)
[2022-04-28] MEDS ORDERED: hydrALAZINE 20 MG/1 ML VIAL IV PRN (16:15)
[2022-04-28] MEDS ORDERED: FUROSEMIDE 40 MG/4 ML VIAL IV SCH (17:00)
[2022-04-28] MEDS: IMMUNE GLOBULIN 10% 40 GM in PREMIX 1 EACH IV SCH (17:06)
[2022-04-28] MEDS: ALBUTEROL/IPRATROPIUM 3 ML NEB RESP TX SCH (19:47)
[2022-04-28] MEDS: SODIUM CHLORIDE 1 GM TABLET PO SCH (22:17)
[2022-04-28] MEDS: PANTOPRAZOLE 40 MG TABLET PO SCH (22:17)
[2022-04-28] MEDS: FUROSEMIDE 40 MG/4 ML VIAL IV SCH (22:17)
[2022-04-29] MEDS: ALBUTEROL/IPRATROPIUM 3 ML NEB RESP TX SCH ×4 (02:00→19:51)
[2022-04-29 02:58] LABS: Bilirubin,Urine Small mg/dL (Negative); Blood, Urine Large mg/dL (Negative); Glucose,Urine (UA) Negative (Negative); Ketones,Urine 40 mg/dL (Negative); Mucus,Urine Many /LPF (Occasional); Nitrite,Urine Negative (Negative); Protein,Urine 100 mg/dL (Negative); RBC,Urine 1798 /HPF (0-4); Squamous Epithelial Cell,Urine Few /HPF (0-10); Urine Appearance Slightly Cloudy (Clear); Urine Color Amber (Yellow); Urine Specific Gravity 1.025 (1.001-1.035); Urine Urobilinogen 0.2 eU/dL (<2.0)
[2022-04-29 04:46] LABS: Basophils % 0.2 % (0.0-0.8); Eosinophils % 0.2 % (0.00-10.9); Hematocrit 35.3 VOL% (35.7-47.0); Hemoglobin 10.7 GM/DL (12.0-16.0); Immature Granulocytes % 2.6 %; Immature Granulocytes Absolute 0.32 #; Lymphocytes # 2.3 10*3/uL (1.4-4.0); Lymphocytes % 18.9 % (21.3-54.2); Mean Corpuscular HGB Conc 30.3 GM/DL (32-36); Mean Corpuscular Volume 87.2 FL (87-102); Mean Platelet Volume 9.7 FL (9.6-12.0); Monocytes # 0.9 10*3/uL (0.11-0.8); Monocytes % 7.5 % (1.7-12.7); Neutrophils % 70.6 % (38.7-73.9); Platelet Count 226 T/CUMM (130-400); Red Blood Count 4.05 MC/CUMM (3.8-5.5); Red Cell Distribution Width 14.3 % (9.3-17.3); White Blood Count 12.3 T/CUMM (4-12)
[2022-04-29 05:14] LABS: Bilirubin,Total 0.4 MG/DL (0.20-1.00); Calcium 8.4 MG/DL (8.5-10.1); Osmolality,Calculated 273.1 MOS/KG (273-304); Potassium 3.2 MMOL/L (3.5-5.1); Thyroid Stimulating Hormone 2.2 uIU/ml (0.358-3.74); Total Protein 7.2 G/DL (6.4-8.2)
[2022-04-29] MEDS: IMMUNE GLOBULIN 10% 40 GM in PREMIX 1 EACH IV SCH (09:23)
[2022-04-29] MEDS: PANTOPRAZOLE 40 MG TABLET PO SCH (09:23)
[2022-04-29] MEDS: SODIUM CHLORIDE 1 GM TABLET PO SCH ×2 (09:23→21:07)
[2022-04-29] MEDS: FUROSEMIDE 40 MG/4 ML VIAL IV SCH ×2 (09:23→21:07)
[2022-04-29] MEDS: POTASSIUM CHLORIDE 20 MEQ TABLET PO PRN ×4 (09:23→17:18)
[2022-04-29] MEDS: ENOXAPARIN 40 MG/0.4 ML SYRINGE SUBCUT SCH (13:12)
[2022-04-29] MEDS: POTASSIUM CHLORIDE 20 MEQ TABLET PO SCH (21:07)
[2022-04-30] MEDS: ALBUTEROL/IPRATROPIUM 3 ML NEB RESP TX SCH ×4 (00:30→19:11)
[2022-04-30 06:07] LABS: Basophils % 0.3 % (0.0-0.8); Eosinophils % 0.2 % (0.00-10.9); Hematocrit 35.4 VOL% (35.7-47.0); Hemoglobin 11.1 GM/DL (12.0-16.0); Immature Granulocytes Absolute 0.67 #; Lymphocytes # 2.8 10*3/uL (1.4-4.0); Mean Corpuscular HGB Conc 31.4 GM/DL (32-36); Mean Corpuscular Volume 85.9 FL (87-102); Mean Platelet Volume 9.2 FL (9.6-12.0); Monocytes % 15.3 % (1.7-12.7); Neutrophils % 58.2 % (38.7-73.9); Platelet Count 220 T/CUMM (130-400); Red Blood Count 4.12 MC/CUMM (3.8-5.5); Red Cell Distribution Width 14.8 % (9.3-17.3); White Blood Count 13.3 T/CUMM (4-12)
[2022-04-30 06:33] LABS: Eosinophils 1 % (0-10); Lymphocytes 23 % (20-55); Nucleated Red Blood Cells 2 /100 WBC (0-5); Platelet Estimate Normal; Total Cells Counted 100
[2022-04-30 06:45] LABS: Albumin 2.6 G/DL (3.4-5.0); Bilirubin,Total 0.6 MG/DL (0.20-1.00); Calcium 7.9 MG/DL (8.5-10.1); Osmolality,Calculated 273.1 MOS/KG (273-304); Potassium 3.3 MMOL/L (3.5-5.1); Total Protein 8.1 G/DL (6.4-8.2)
[2022-04-30] MEDS: FUROSEMIDE 40 MG/4 ML VIAL IV SCH (08:12)
[2022-04-30] MEDS: POTASSIUM CHLORIDE 20 MEQ TABLET PO SCH ×2 (08:13→22:10)
[2022-04-30] MEDS: PANTOPRAZOLE 40 MG TABLET PO SCH (08:13)
[2022-04-30] MEDS: SODIUM CHLORIDE 1 GM TABLET PO SCH ×2 (08:13→22:11)
[2022-04-30] MEDS: IMMUNE GLOBULIN 10% 40 GM in PREMIX 1 EACH IV SCH (08:24)
[2022-04-30] MEDS: POTASSIUM CHLORIDE 20 MEQ TABLET PO PRN ×3 (10:30→16:22)
[2022-04-30] MEDS: ENOXAPARIN 40 MG/0.4 ML SYRINGE SUBCUT SCH (15:01)
[2022-04-30 15:31] LABS: Arterial Base Excess iSTAT 8 MMOL/L (-2.5-2.5); Arterial Bicarbonate iSTAT 31.1 MMOL/L (20-26); Arterial O2 Saturation iSTAT 96 % (95-100); Arterial PCO2 iSTAT 39 MM HG (35-48); Arterial PO2 iSTAT 77 MM HG (80-95); Arterial Total CO2 iSTAT 32 MMO/L (23-27); Arterial pH iSTAT 7.508 (7.35-7.45)
[2022-04-30] MEDS: PYRIDOSTIGMINE 60 MG TABLET PO SCH ×2 (16:22→22:11)
[2022-04-30] MEDS ORDERED: IMMUNE GLOBULIN 10% 20 GM in PREMIX 1 EACH IV ONE (22:00)
[2022-04-30] MEDS: predniSONE 20 MG TABLET PO SCH (22:11)
[2022-05-01] MEDS: ALBUTEROL/IPRATROPIUM 3 ML NEB RESP TX SCH ×4 (00:17→20:00)
[2022-05-01 04:45] LABS: Basophils % 0.4 % (0.0-0.8); Hematocrit 34.8 VOL% (35.7-47.0); Hemoglobin 10.5 GM/DL (12.0-16.0); Immature Granulocytes % 7.5 %; Immature Granulocytes Absolute 0.86 #; Lymphocytes # 0.6 10*3/uL (1.4-4.0); Lymphocytes % 5.2 % (21.3-54.2); Mean Corpuscular HGB Conc 30.2 GM/DL (32-36); Mean Corpuscular Volume 89.2 FL (87-102); Mean Platelet Volume 9.4 FL (9.6-12.0); Monocytes # 0.6 10*3/uL (0.11-0.8); Monocytes % 4.8 % (1.7-12.7); NRBC # 0.03 10*3/uL; Neutrophils % 82.1 % (38.7-73.9); Platelet Count 200 T/CUMM (130-400); White Blood Count 11.4 T/CUMM (4-12)
[2022-05-01 05:22] LABS: Albumin 2.4 G/DL (3.4-5.0); Bilirubin,Total 0.7 MG/DL (0.20-1.00); Calcium 8.2 MG/DL (8.5-10.1); Osmolality,Calculated 274.2 MOS/KG (273-304); Total Protein 8.8 G/DL (6.4-8.2)
[2022-05-01 05:28] LABS: Hypochromia Slight; Lymphocytes 7 % (20-55); Microcytosis Slight; Platelet Estimate Adequate; Total Cells Counted 100
[2022-05-01] MEDS ORDERED: IMMUNE GLOBULIN IV SCH (09:00)
[2022-05-01] MEDS: ENOXAPARIN 40 MG/0.4 ML SYRINGE SUBCUT SCH (09:10)
[2022-05-01] MEDS: PYRIDOSTIGMINE 60 MG TABLET PO SCH ×4 (09:10→20:55)
[2022-05-01] MEDS: predniSONE 20 MG TABLET PO SCH ×2 (09:10→20:55)
[2022-05-01] MEDS: SODIUM CHLORIDE 1 GM TABLET PO SCH ×2 (09:10→20:55)
[2022-05-01] MEDS: PANTOPRAZOLE 40 MG TABLET PO SCH (09:10)
[2022-05-01] MEDS: POTASSIUM CHLORIDE 20 MEQ TABLET PO SCH ×2 (09:10→20:55)
[2022-05-02] MEDS: ALBUTEROL/IPRATROPIUM 3 ML NEB RESP TX SCH ×4 (00:31→20:25)
[2022-05-02 05:40] LABS: Basophils % 0.2 % (0.0-0.8); Hematocrit 31.9 VOL% (35.7-47.0); Hemoglobin 9.7 GM/DL (12.0-16.0); Immature Granulocytes % 3.1 %; Immature Granulocytes Absolute 0.35 #; Lymphocytes # 0.7 10*3/uL (1.4-4.0); Lymphocytes % 5.9 % (21.3-54.2); Mean Corpuscular HGB Conc 30.4 GM/DL (32-36); Mean Corpuscular Volume 87.6 FL (87-102); Mean Platelet Volume 9.8 FL (9.6-12.0); Monocytes # 0.6 10*3/uL (0.11-0.8); Monocytes % 5.2 % (1.7-12.7); Neutrophils % 85.6 % (38.7-73.9); Platelet Count 195 T/CUMM (130-400); Red Blood Count 3.64 MC/CUMM (3.8-5.5); White Blood Count 11.4 T/CUMM (4-12)
[2022-05-02 06:07] LABS: Albumin 2.4 G/DL (3.4-5.0); Bilirubin,Total 0.4 MG/DL (0.20-1.00); Calcium 8.7 MG/DL (8.5-10.1); Osmolality,Calculated 280.8 MOS/KG (273-304); Total Protein 8.5 G/DL (6.4-8.2)
[2022-05-02] MEDS: POTASSIUM CHLORIDE 20 MEQ TABLET PO SCH ×2 (09:47→21:17)
[2022-05-02] MEDS: PYRIDOSTIGMINE 60 MG TABLET PO SCH ×4 (09:48→21:17)
[2022-05-02] MEDS: predniSONE 20 MG TABLET PO SCH ×2 (09:48→21:17)
[2022-05-02] MEDS: SODIUM CHLORIDE 1 GM TABLET PO SCH ×2 (09:48→21:16)
[2022-05-02] MEDS: PANTOPRAZOLE 40 MG TABLET PO SCH (09:48)
[2022-05-02] MEDS: ENOXAPARIN 40 MG/0.4 ML SYRINGE SUBCUT SCH (09:48)
[2022-05-02] MEDS: IMMUNE GLOBULIN IV SCH (11:04)
[2022-05-03] MEDS: ALBUTEROL/IPRATROPIUM 3 ML NEB RESP TX SCH ×4 (00:37→19:55)
[2022-05-03] MEDS: PANTOPRAZOLE 40 MG TABLET PO SCH (09:14)
[2022-05-03] MEDS: predniSONE 20 MG TABLET PO SCH ×2 (09:14→20:43)
[2022-05-03] MEDS: PYRIDOSTIGMINE 60 MG TABLET PO SCH ×4 (09:15→20:43)
[2022-05-03] MEDS: POTASSIUM CHLORIDE 20 MEQ TABLET PO SCH (09:15)
[2022-05-03] MEDS: IMMUNE GLOBULIN IV SCH (09:15)
[2022-05-03] MEDS: ENOXAPARIN 40 MG/0.4 ML SYRINGE SUBCUT SCH (09:15)
[2022-05-03] MEDS: SODIUM CHLORIDE 1 GM TABLET PO SCH ×2 (09:15→20:43)
[2022-05-03] MEDS: CETIRIZINE 10 MG TABLET PO SCH (18:33)
[2022-05-04] MEDS: ALBUTEROL/IPRATROPIUM 3 ML NEB RESP TX SCH ×2 (01:39→07:30)
[2022-05-04] MEDS: ENOXAPARIN 40 MG/0.4 ML SYRINGE SUBCUT SCH (09:10)
[2022-05-04] MEDS: predniSONE 20 MG TABLET PO SCH (09:11)
[2022-05-04] MEDS: SODIUM CHLORIDE 1 GM TABLET PO SCH (09:11)
[2022-05-04] MEDS: PYRIDOSTIGMINE 60 MG TABLET PO SCH ×2 (09:12→12:18)
[2022-05-04] MEDS: PANTOPRAZOLE 40 MG TABLET PO SCH (09:12)
[2022-05-04] MEDS: CETIRIZINE 10 MG TABLET PO SCH (10:15)
[2022-05-04 11:19] VITALS: BP 148/67
== END 2022-05-04 14:12 | disposition swing bed (61) | DRG 56 ==
LOC: N.ED 11:13 → SUATTDRO 13:38 → N.2E 13:38
PROVIDERS: ADMIT Internal Medicine; ATTEND Hospitalist